=== PATIENT | female | born 1995 | race Caucasian/White ===

== ENCOUNTER → 2017-01-30 | Outpatient (CLI) | payer OTHER ==
[2017-01-30 08:45] LABS: BLOOD UREA NITROGEN 9 mg/dl (7-18); BUN/CREATININE RATIO 13.7 (10-20); CALCIUM 9.2 mg/dl (8.5-10.1); CARBON DIOXIDE 28 mmol/L (21-32); CHLORIDE 104 mmol/L (98-107); CREATININE 0.63 mg/dl (0.60-1.20); GLUCOSE 80 mg/dl (70-99); POTASSIUM 3.9 mmol/L (3.5-5.1); SODIUM 139 mmol/L (136-145)
== END | disposition home or self-care (01) ==
LOC: C.LAB 06:13
PROVIDERS: ATTEND Physician Assistant
DX: R53.83 Other fatigue (principal); R68.89 Other general symptoms and signs; F39 Unspecified mood [affective] disorder

== ENCOUNTER → 2017-06-11 | Outpatient (CLI) | payer OTHER ==
[2017-06-11 07:23] LABS: CHOLESTEROL/HDL RATIO 2.6
== END | disposition home or self-care (01) ==
LOC: C.LAB 06:14
PROVIDERS: ATTEND Family Medicine
DX: Z13.220 Encounter for screening for lipoid disorders (principal)

== ENCOUNTER → 2017-08-21 | Outpatient (CLI) | payer OTHER ==
[2017-08-21 09:32] LABS: BASO % 0.4 %; BASO ABS # 0.03 K/uL (0-0.2); COMPLETE YES; EOS % 1.1 %; HEMATOCRIT 44.3 % (37-47); IG% 0.1 %; LYMPH ABS # 2.61 K/uL (1.2-3.4); MEAN CELL VOLUME 94.7 fL (80-100); MEAN CORPUSCULAR HEMOGLOBIN 31.6 pg (25-34); MEAN CORPUSCULAR HGB CONC 33.4 g/dl (32-36); MEAN PLATELET VOLUME 10.7 fL (7.4-10.4); MONO % 6.1 %; NEUT % 61.3 %; PLATELET COUNT 298 K/uL (130-400); RED BLOOD COUNT 4.68 M/uL (4.2-5.4); WHITE BLOOD COUNT 8.41 K/uL (4.8-10.8)
[2017-08-21 09:55] LABS: THYROID STIMULATING HORMONE 1.61 uIu/ml (0.300-4.500)
== END | disposition home or self-care (01) ==
LOC: C.LAB 06:16
PROVIDERS: ATTEND Physician Assistant
DX: M54.2 Cervicalgia (principal)

== ENCOUNTER → 2017-08-25 | Outpatient (CLI) | payer OTHER | END | disposition home or self-care (01) | LOC: C.LAB 15:27 | PROVIDERS: ATTEND Family Medicine | DX: R20.2 Paresthesia of skin (principal) ==

== ENCOUNTER → 2018-02-17 | Outpatient (CLI) | payer OTHER ==
--- NOTE | 2018-02-17 10:22 | DIAGNOSTIC IMAGING REPORT ---
ULTRASOUND OF THE PELVIS CLINICAL HISTORY: Pelvic pain and bloating. COMPARISON STUDY: No priors. TECHNIQUE: Real-time, grayscale, and color flow sonography of the pelvis is performed both transabdominally and endovaginally. Images are reviewed in the transverse and longitudinal planes. FINDINGS: Uterus: The uterus is normal in size and echotexture, measuring 6.7 x 2.4 x 3.9 cm. Endometrium: The endometrium is normal in appearance, and the endometrial stripe is normal in thickness measuring up to 0.4 cm. Ovaries: The ovaries are normal in size and morphology. The right ovary measures 2.7 x 1.0 x 1.7 cm and the left ovary measures 2.3 x 0.9 x 2.3 cm. Small follicles are noted bilaterally. Normal Doppler waveforms are shown within both ovaries. Pelvis: There is trace free fluid in the cul-de-sac. No concerning adnexal lesion is seen. IMPRESSION: 1. No acute sonographic abnormality is identified in the pelvis. 2. Trace free fluid in the cul-de-sac is nonspecific and likely within physiologic limits. Electronically signed by: Jose Owens M.D. 02/17/2018 10:21 AM Dictated Date/Time: 02/17/2018 10:20 AM
--- NOTE | 2018-02-17 10:23 | DIAGNOSTIC IMAGING REPORT ---
ULTRASOUND RIGHT UPPER QUADRANT ABDOMEN CLINICAL HISTORY: Upper abdominal pain. COMPARISON STUDY: No priors. TECHNIQUE: Real-time, grayscale, and color flow sonography of the right upper quadrant of the abdomen was performed. Images are reviewed in the transverse and longitudinal planes. FINDINGS: Liver: The liver is normal in size and echotexture. There is no intrahepatic biliary ductal dilatation. The main portal vein is patent. Gallbladder: The gallbladder is normal in appearance. No gallstones are identified. There is no gallbladder wall thickening or pericholecystic fluid. A sonographic Price's sign is reportedly absent. The common bile duct measures up to 0.4 cm in diameter. Pancreas: Visualized portions of the pancreatic head and body are normal in appearance. The splenic vein is patent. Right kidney: Survey images of the right kidney demonstrate normal size and echotexture. There is no hydronephrosis. Ascites: None. IMPRESSION: Unremarkable sonographic assessment of the right upper quadrant. No gallstones are identified. Electronically signed by: Jose Owens M.D. 02/17/2018 10:22 AM Dictated Date/Time: 02/17/2018 10:21 AM
[2018-02-17 12:11] LABS: BASO % 0.7 %; BASO ABS # 0.04 K/uL (0-0.2); EOS % 0.7 %; EOS ABS # 0.04 K/uL (0-0.5); HEMOGLOBIN 13.8 g/dL (12.0-16.0); IG# 0.01 K/uL (0.00-0.02); MEAN CELL VOLUME 96.2 fL (80-100); MEAN CORPUSCULAR HEMOGLOBIN 32.4 pg (25-34); MEAN CORPUSCULAR HGB CONC 33.7 g/dl (32-36); MEAN PLATELET VOLUME 11.1 fL (7.4-10.4); NEUT % 50.4 %; NEUT ABS # 3.05 K/uL (1.4-6.5); PLATELET COUNT 239 K/uL (130-400); RED CELL DISTRIBUTION WIDTH CV 13.1 % (11.5-14.5); RED CELL DISTRIBUTION WIDTH SD 45.7 fL (36.4-46.3); WHITE BLOOD COUNT 6.04 K/uL (4.8-10.8)
[2018-02-17 12:45] LABS: ALBUMIN 3.5 gm/dl (3.4-5.0); ALT/SGPT 19 U/L (12-78); AST/SGOT 14 U/L (15-37); BLOOD UREA NITROGEN 14 mg/dl (7-18); CALCIUM 8.6 mg/dl (8.5-10.1); CARBON DIOXIDE 29 mmol/L (21-32); CREATININE 0.62 mg/dl (0.60-1.20); GLUCOSE 80 mg/dl (70-99); LIPASE 151 U/L (73-393); SODIUM 139 mmol/L (136-145)
[2018-02-17 12:47] LABS: ALKALINE PHOSPHATASE 41 U/L (45-117); TOTAL PROTEIN 7.1 gm/dl (6.4-8.2)
== END | disposition home or self-care (01) ==
LOC: C.ULTR 08:40
PROVIDERS: ATTEND Family Medicine
DX: R10.10 Upper abdominal pain, unspecified (principal); R14.0 Abdominal distension (gaseous); R10.30 Lower abdominal pain, unspecified

== ENCOUNTER 2021-08-06 07:29 | Inpatient (IN) ==
[2021-08-06] MEDS ORDERED: OXYTOCIN 30 UNITS/500 ML BAG IV PRN (09:38)
[2021-08-06] MEDS ORDERED: miSOPROStoL 50 MCG TAB PO ONE ×2 (09:38→15:43)
[2021-08-06 09:57] LABS: Hematocrit (blood only) 37.8 % (37-47); Hemoglobin 13.1 g/dL (12.0-16.0); Mean Corpuscular Hemoglobin 32.3 pg (25-34); Mean Corpuscular Hgb Conc 34.7 g/dL (32-36); Mean Corpuscular Volume 93.3 fL (80-100); Mean Platelet Volume 11.2 fL (7.4-10.4); Platelet Count 262 K/uL (130-400); RDW Coefficient of Variation 13.2 % (11.5-14.5); RDW Standard Deviation 45.3 fL (36.4-46.3); Red Blood Count 4.05 M/uL (4.2-5.4); White Blood Count 8.97 K/uL (4.8-10.8)
[2021-08-06 10:14] LABS: Alanine Aminotransferase 17 U/L (12-78); Albumin Level 2.8 gm/dl (3.4-5.0); Aspartate Aminotransferase 18 U/L (15-37); BUN Creatinine Ratio 18.9 (10-20); Blood Urea Nitrogen 9 mg/dl (7-18); Calcium 9.3 mg/dl (8.5-10.1); Carbon Dioxide 20 mmol/L (21-32); Chloride 108 mmol/L (98-107); Creatinine Clr Calc Pharmacy 212.3 ml/min; Est GFR (African American) > 150.0 ml/min; Est GFR (Non-African American) 134.4 ml/min; Glucose 79 mg/dl (70-99); Potassium 3.9 mmol/L (3.5-5.1); Sodium 137 mmol/L (136-145)
[2021-08-06 10:17] LABS: Albumin Globulin Ratio 0.7 (0.9-2); Alkaline Phosphatase 217 U/L (45-117); Bilirubin,Total 0.2 mg/dl (0.2-1); Globulin 4.2 gm/dl (2.5-4.0)
--- NOTE | 2021-08-06 12:07 | Labor Progress Brief Note ---
Date of Service August 06, 2021 Assessment & Plan (1) Gestational hypertension: Plan: Induction for Gest. HTN Day #1 pt doing well FHR; CAT1 Ctx; None VE; Ft/thick/post Cervidil #1 Admission and Anticipated Discharge Date Admission Date: August 06, 2021 Results & Data ([facility]) Vital Signs (Past 12 Hours) Vital Signs Temp Pulse Resp BP 08/06/21 11:13 86 130/66 08/06/21 08:30 36.9 C 20 08/06/21 07:39 80 140/88
--- NOTE | 2021-08-06 16:32 | Labor Progress Brief Note ---
Date of Service August 06, 2021 Assessment & Plan (1) Gestational hypertension: Plan: Pt doing well FHR; CAyt1 Ctx; irregular with Mild intensity VE ; Ft/25%/-3 Cytotec ordered Admission and Anticipated Discharge Date Admission Date: August 06, 2021 Results & Data ([facility]) Vital Signs (Past 12 Hours) Vital Signs Temp Pulse Resp BP 08/06/21 14:48 75 143/92 H 08/06/21 13:30 18 08/06/21 11:13 86 130/66 08/06/21 08:30 36.9 C 20 08/06/21 07:39 80 140/88
[2021-08-06] MEDS ORDERED: DINOPROSTONE 10 MG INSERT PV ONE (20:15)
--- NOTE | 2021-08-06 21:44 | Labor Progress Brief Note ---
Date of Service August 06, 2021 Assessment & Plan (1) Gestational hypertension: Plan: Pt doing well FHR; CAT1 Ctx mild VE; Unchanged Cervidil placed in vagina Admission and Anticipated Discharge Date Admission Date: August 06, 2021 Results & Data ([facility]) Vital Signs (Past 12 Hours) Vital Signs Temp Pulse Resp BP 08/06/21 19:10 37.3 C 18 08/06/21 19:03 82 142/95 H 08/06/21 19:02 82 155/103 H 08/06/21 16:00 36.9 C 08/06/21 14:48 75 143/92 H 08/06/21 13:30 18 08/06/21 11:30 36.9 C 08/06/21 11:13 86 130/66
--- NOTE | 2021-08-07 09:23 | Labor Progress Brief Note ---
Date of Service August 07, 2021 Assessment & Plan Admission and Anticipated Discharge Date Admission Date: August 06, 2021 Physical Exam Genitourinary: no vaginal lesions, no adnexal mass normal external appearance Manual OB Exam: + cervical dilation fingertip, + cervical effacement (25%) and + station high Cervidil removed will continue ripening with Cytotec 50 mcg orally every 4 hours Results & Data ([facility]) Vital Signs (Past 12 Hours) Vital Signs Temp Pulse Resp BP 08/07/21 07:58 71 133/86 08/07/21 07:56 37.4 C 18 08/07/21 04:07 37.0 C 68 18 119/73 08/06/21 23:05 36.7 C 71 121/62
[2021-08-07] MEDS ORDERED: LIDOCAINE 1% LOCAL 20 ML VIAL ONE (09:27)
[2021-08-07] MEDS: miSOPROStoL 50 MCG TAB PO SCH ×3 (15:49→22:09)
--- NOTE | 2021-08-07 21:54 | Labor Progress Brief Note ---
Date of Service August 07, 2021 Assessment & Plan Admission and Anticipated Discharge Date Admission Date: August 06, 2021 Physical Exam Genitourinary: Manual OB Exam: + cervical dilation fingertip, + cervical effacement (25%) and + station high OB Exam Monitor Tracing: + external FHT monitor used, + external uterine monitor used, + category I and + normal FHT variability cervix more anterior now will place Cervidil for continued ripening Results & Data ([facility]) Vital Signs (Past 12 Hours) Vital Signs Temp Pulse Resp BP 08/07/21 19:03 75 130/81 08/07/21 19:00 36.8 C 18 08/07/21 15:29 37.1 C 18 08/07/21 14:38 18 08/07/21 13:52 79 139/87 08/07/21 13:00 18 08/07/21 11:29 70 121/79 08/07/21 11:28 36.8 C 18
[2021-08-07] MEDS ORDERED: DINOPROSTONE 10 MG INSERT PV ONE (22:00)
--- NOTE | 2021-08-07 22:22 | Labor Progress Brief Note ---
Date of Service August 07, 2021 Assessment & Plan Admission and Anticipated Discharge Date Admission Date: August 06, 2021 Physical Exam Genitourinary: Manual OB Exam: + cervical dilation fingertip, + cervical effacement (25) and + station (Cervidil 10 mg placed vaginally) high OB Exam Monitor Tracing: + external FHT monitor used, + external uterine monitor used, + category I and + normal FHT variability Results & Data ([facility]) Vital Signs (Past 12 Hours) Vital Signs Temp Pulse Resp BP 08/07/21 19:03 75 130/81 08/07/21 19:00 36.8 C 18 08/07/21 15:29 37.1 C 18 08/07/21 14:38 18 08/07/21 13:52 79 139/87 08/07/21 13:00 18 08/07/21 11:29 70 121/79 08/07/21 11:28 36.8 C 18
[2021-08-07] MEDS ORDERED: BUTORPHANOL TARTRATE 1 MG/ML VIAL IV PRN (22:24)
--- NOTE | 2021-08-08 10:07 | Anesthesia Procedure Note ---
Date of Service August 08, 2021 Anesthesia Post Epidural Note Vital Signs Vital Signs: Temp Pulse Resp BP 37.5 C 82 18 122/85 08/08/21 08:05 08/08/21 08:01 08/08/21 08:05 08/08/21 08:01 Pain Intensity Lower Abdomen: Pain Intensity: 1 Notes Mental Status: alert / awake / arousable Nausea / Vomiting: adequately controlled Pain: adequately controlled Airway Patency, RR, SpO2: stable & adequate BP & HR: stable & adequate Hydration State: stable & adequate Neuraxial Anesthesia: was administered and sensory block is resolving Anesthetic Complications: no major complications apparent and Pt Satisfied with anesthetic care Epidural: Removed without complications and With tip intact
--- NOTE | 2021-08-08 10:16 | Labor Progress Brief Note ---
Date of Service August 08, 2021 Assessment & Plan Admission and Anticipated Discharge Date Admission Date: August 06, 2021 Physical Exam Genitourinary: Manual OB Exam: + cervical dilation 1 cm, + cervical effacement 60% and + station (cervix still firm. ) -2 Will start Oxytocin and plan to place intracervical Jeffrey Results & Data ([facility]) Vital Signs (Past 12 Hours) Vital Signs Temp Pulse Resp BP 08/08/21 08:05 37.5 C 18 08/08/21 08:01 82 122/85 08/08/21 07:59 37.5 C 18 08/08/21 04:03 36.7 C 63 18 120/70 08/07/21 22:41 70 114/60 08/07/21 22:40 36.7 C 16
[2021-08-08] MEDS ORDERED: OXYTOCIN 30 UNITS/500 ML BAG IV PRN ×2 (10:17→23:51)
--- NOTE | 2021-08-08 11:34 | Labor Progress Brief Note ---
Date of Service August 08, 2021 Assessment & Plan Admission and Anticipated Discharge Date Admission Date: August 06, 2021 Physical Exam Genitourinary: OB Exam Monitor Tracing: + external FHT monitor used, + external uterine monitor used, + category I and + normal FHT variability Jeffrey placed trans-cervically with 40 ml. saline inserted into balloon. Patient tolerated procedure well. Results & Data ([facility]) Vital Signs (Past 12 Hours) Vital Signs Temp Pulse Resp BP 08/08/21 11:16 79 132/85 08/08/21 10:34 18 08/08/21 08:05 37.5 C 18 08/08/21 08:01 82 122/85 08/08/21 07:59 37.5 C 18 08/08/21 04:03 36.7 C 63 18 120/70
[2021-08-08] MEDS: LACTATED RINGER'S 1,000 ML IV PRN ×4 (11:38→22:19)
[2021-08-08] MEDS: miSOPROStoL 50 MCG TAB PO SCH (11:42)
[2021-08-08 14:16] LABS: Chlamydia Trach RNA NOT DETECTED (NOT DETECTED); GC (Neis gonorrhoeae) RNA NOT DETECTED (NOT DETECTED)
[2021-08-08] MEDS ORDERED: ONDANSETRON INJ 2 MG/ML 2 ML VIAL IV PRN (15:14)
--- NOTE | 2021-08-08 17:36 | Labor Progress Brief Note ---
Date of Service August 08, 2021 Assessment & Plan Admission and Anticipated Discharge Date Admission Date: August 06, 2021 Physical Exam Genitourinary: Manual OB Exam: + cervical dilation 5 cm; Not 2 cm, + cervical effacement 70%, + station -2 and + amniotic fluid (AROM with Amni-hook clear fluid) clear OB Exam Monitor Tracing: + external FHT monitor used, + external uterine monitor used, + category I and + normal FHT variability Results & Data ([facility]) Vital Signs (Past 12 Hours) Vital Signs Temp Pulse Resp BP 08/08/21 16:30 75 20 152/91 H 08/08/21 15:01 91 H 139/82 08/08/21 15:00 37.1 C 18 08/08/21 14:30 18 08/08/21 14:16 85 136/83 08/08/21 12:52 78 122/70 08/08/21 12:00 18 08/08/21 11:30 18 08/08/21 11:16 79 132/85 08/08/21 10:34 18 08/08/21 08:05 37.5 C 18 08/08/21 08:01 82 122/85 08/08/21 07:59 37.5 C 18
[2021-08-08] MEDS ORDERED: SODIUM CHLORIDE 0.9% INJ 10 ML VIAL ONE (18:34)
[2021-08-08] MEDS ORDERED: BUPIVACAINE 0.25% 30 ML VIAL ONE (18:34)
[2021-08-08] MEDS ORDERED: ePHEDrine sulfate 50 MG/ML AMP ONE (18:34)
[2021-08-08] MEDS ORDERED: fentaNYL 2MCG/ML ROPIVACAINE 1.25MG/ML 100 ML BAG EPI ONE (18:35)
[2021-08-08] MEDS ORDERED: fentaNYL citrate 100 MCG/2 ML VIAL ONE (18:35)
--- NOTE | 2021-08-08 19:50 | Labor Progress Brief Note ---
Date of Service August 08, 2021 Assessment & Plan Admission and Anticipated Discharge Date Admission Date: August 06, 2021 Physical Exam Genitourinary: Manual OB Exam: + cervical dilation 5 cm and 6 cm, + cervical effacement 70%, + station -1 and + amniotic fluid clear OB Exam Monitor Tracing: + external FHT monitor used, + external uterine monitor used, + category I and + normal FHT variability Results & Data ([facility]) Vital Signs (Past 12 Hours) Vital Signs Temp Pulse Resp BP Pulse Ox 08/08/21 19:48 102 H 98 08/08/21 19:46 109 H 92 08/08/21 19:44 110 H 128/73 08/08/21 19:43 108 H 100 08/08/21 19:40 110 H 128/72 08/08/21 19:38 96 H 99 08/08/21 19:35 110 H 92 08/08/21 19:34 110 H 133/72 08/08/21 19:33 104 H 99 08/08/21 19:32 95 H 121/78 08/08/21 19:30 99 H 122/68 08/08/21 19:28 106 H 124/69 97 08/08/21 19:26 103 H 129/76 08/08/21 19:24 96 H 139/75 08/08/21 19:23 101 H 100 08/08/21 19:22 96 H 20 145/80 H 08/08/21 19:18 88 98 08/08/21 19:15 103 H 89 L 08/08/21 19:13 99 H 99 08/08/21 19:08 94 H 99 08/08/21 19:03 90 95 08/08/21 18:58 92 H 99 08/08/21 18:53 95 H 99 08/08/21 18:48 84 98 08/08/21 18:43 95 H 97 08/08/21 18:39 36.9 C 101 H 18 145/85 H 08/08/21 18:38 84 100 08/08/21 17:49 85 147/82 H 08/08/21 17:46 85 150/92 H 08/08/21 16:30 75 20 152/91 H 08/08/21 15:01 91 H 139/82 08/08/21 15:00 37.1 C 18 08/08/21 14:30 18 09/30/21 14:16 85 136/83 08/08/21 12:52 78 122/70 08/08/21 12:00 18 08/08/21 11:30 18 08/08/21 11:16 79 132/85 08/08/21 10:34 18 08/08/21 08:05 37.5 C 18 08/08/21 08:01 82 122/85 08/08/21 07:59 37.5 C 18
--- NOTE | 2021-08-08 19:53 | Anesthesiology Consultation ---
Date of Service August 08, 2021 Assessment & Plan Chart Review Chart Review: Patient NOT seen in Pre Admission Testing and Acceptable Risk for Labor Epidural Consults Requested none ASA ASA2 Proposed Anesthesia Anesthesia Type: Labor Epidural Risk / Benefits Reviewed With: PT / POA / Parent / Guardian, Accepts Plan and Informed Consent Obtained History Height/Weight Height: 5 ft 9 in Weight: 89.358 kg Allergies Allergy/AdvReac Type Severity Reaction Status Date / Time No Known Allergies Allergy Verified 07/08/18 14:35 Medications Home Medications Medication Instructions Recorded Confirmed Last Taken docusate sodium 100 mg capsule 100 mg PO BID 07/31/21 08/06/21 07/30/21 08:00 (Colace) loratadine 5 mg-pseudoephedrine ER 1 tab PO Q12H PRN 07/31/21 08/06/21 08/06/21 120 mg tablet,extended release,12hr (Claritin-D 12 Hour) polyethylene glycol 3350 17 gram 17 g PO DAILY 07/31/21 08/06/21 07/24/21 08:00 oral powder packet (Miralax) prenat.vits,janusz,vbw-juug-tvjuv 1 tab PO DAILY 07/31/21 08/06/21 08/06/21 Active Medications Generic Name Dose Route Start Last Admin Trade Name Freq PRN Reason Stop Dose Admin Lactated Ringer's 1,000 mls @ 125 mls/hr 08/06/21 09:38 08/08/21 17:51 Lr IV 08/10/21 09:37 999 mls/hr .Q8H PRN Administration L&D Protocol Protocol Oxytocin 30 units in 500 mls @ 14 mls/hr 08/08/21 10:17 08/08/21 17:10 Pitocin IV 08/10/21 10:16 0.84 units/hr .Q24H PRN 14 mls/hr Labor Induction/Augmentation Titration Protocol 0.84 UNITS/HR Past Medical History Medical History Crohn disease IBS (irritable bowel syndrome) Raynauds disease Exercise / Class Metabolic Activity II 4-5 Yardwork/Stairs/Walk up hill Past Surgical History Surgical History History of tonsillectomy Past Anesthesia History No Hx of Anesthesia Complications and No Family Hx of Anesthesia Complications History of PONV No Hx of PONV and No Hx of Motion Sickness Social History Smoking Status: Never smoker Hx Alcohol Use: No Hx Substance Use: No substance use type: does not use Physical Exam Vital Signs Last Vital Signs Temp 36.9 C 08/08/21 18:39 Pulse 94 H 08/08/21 19:51 Resp 20 08/08/21 19:22 BP 128/73 08/08/21 19:44 Pulse Ox 90 08/08/21 19:51 ENMT Mouth: no dentition abnormality Thyromental Distance: > or= 3.5 Finger Breadths Mallampati Class: II Neck normal visual inspection Respiratory normal respiratory effort Auscultation: lungs clear to auscultation bilaterally Cardiovascular Rate/Rhythm: regular rate and regular rhythm Psychiatric Orientation: alert Testing Laboratory Results 08/06/21 09:46 08/06/21 09:46 Blood Type A Positive 08/06/21 09:46 Antibody Screen NEGATIVE 08/06/21 09:46
[2021-08-08] MEDS ORDERED: NALBUPHINE HCL INJ 10 MG/ML AMP IV PRN (19:54)
[2021-08-08] MEDS ORDERED: fentaNYL 2MCG/ML ROPIVACAINE 1.25MG/ML 100 ML BAG EPI PRN (19:54)
[2021-08-08] MEDS ORDERED: diphenhydrAMINE 50 MG/ML VIAL IV PRN (19:54)
[2021-08-08] MEDS ORDERED: NALOXONE HCL 0.4 MG/1 ML VIAL/CARP IV PRN (19:54)
[2021-08-08] MEDS ORDERED: ePHEDrine sulfate 50 MG/ML AMP IV PRN (19:54)
[2021-08-08] MEDS ORDERED: NALOXONE HCL 1 MG in SODIUM CHLORIDE 0.9% 1000ML 1,000 ML IV PRN (19:54)
--- NOTE | 2021-08-08 21:42 | Labor Progress Brief Note ---
Date of Service August 08, 2021 Assessment & Plan Admission and Anticipated Discharge Date Admission Date: August 06, 2021 Physical Exam Genitourinary: Manual OB Exam: + cervical dilation 5 cm and 6 cm, + cervical effacement 80%, + station -1 and + amniotic fluid clear OB Exam Monitor Tracing: + external FHT monitor used, + external uterine monitor used, + category I and + normal FHT variability Results & Data ([facility]) Vital Signs (Past 12 Hours) Vital Signs Temp Pulse Resp BP Pulse Ox 08/08/21 21:38 111 H 100 08/08/21 21:33 100 H 142/84 H 96 08/08/21 21:30 16 08/08/21 21:28 107 H 98 08/08/21 21:26 107 H 86 L 08/08/21 21:23 115 H 94 08/08/21 21:19 106 H 84 L 08/08/21 21:18 110 H 154/85 H 96 08/08/21 21:13 116 H 80 L 08/08/21 21:12 112 H 85 L 08/08/21 21:08 104 H 96 08/08/21 21:06 107 H 83 L 08/08/21 21:03 110 H 144/86 H 100 08/08/21 21:00 20 08/08/21 20:58 120 H 100 08/08/21 20:53 123 H 91 08/08/21 20:48 103 H 129/78 100 08/08/21 20:47 101 H 85 L 08/08/21 20:43 102 H 98 08/08/21 20:39 97 H 87 L 08/08/21 20:38 96 H 97 08/08/21 20:33 96 H 141/81 H 91 08/08/21 20:32 91 H 87 L 08/08/21 20:30 16 08/08/21 20:28 93 H 93 08/08/21 20:26 88 88 L 08/08/21 20:23 89 100 08/08/21 20:18 91 H 88 L 08/08/21 20:17 90 141/85 H 08/08/21 20:13 88 90 08/08/21 20:12 92 H 84 L 08/08/21 20:08 85 95 08/08/21 20:03 92 H 139/82 93 08/08/21 20:00 16 08/08/21 19:58 94 H 100 08/08/21 19:57 90 86 L 08/08/21 19:53 89 88 L 08/08/21 19:51 94 H 90 08/08/21 19:48 102 H 98 08/08/21 19:46 109 H 92 08/08/21 19:44 110 H 128/73 08/08/21 19:43 108 H 100 08/08/21 19:40 110 H 128/72 08/08/21 19:38 96 H 99 08/08/21 19:35 110 H 92 08/08/21 19:34 110 H 133/72 08/08/21 19:33 104 H 99 08/08/21 19:32 95 H 121/78 08/08/21 19:30 99 H 122/68 08/08/21 19:28 106 H 124/69 97 08/08/21 19:26 103 H 129/76 08/08/21 19:24 96 H 139/75 08/08/21 19:23 101 H 100 08/08/21 19:22 96 H 20 145/80 H 08/08/21 19:18 88 98 08/08/21 19:15 103 H 89 L 08/08/21 19:13 99 H 99 08/08/21 19:08 94 H 99 08/08/21 19:03 90 95 08/08/21 18:58 92 H 99 08/08/21 18:53 95 H 99 08/08/21 18:48 84 98 08/08/21 18:43 95 H 97 08/08/21 18:39 36.9 C 101 H 18 145/85 H 08/08/21 18:38 84 100 08/08/21 17:49 85 147/82 H 08/08/21 17:46 85 150/92 H 08/08/21 16:30 75 20 152/91 H 08/08/21 15:01 91 H 139/82 08/08/21 15:00 37.1 C 18 08/08/21 14:30 18 08/08/21 14:16 85 136/83 08/08/21 12:52 78 122/70 08/08/21 12:00 18 08/08/21 11:30 18 08/08/21 11:16 79 132/85 08/08/21 10:34 18
--- NOTE | 2021-08-08 23:44 | Delivery Summary ---
Vaginal Delivery Summary Date of Service August 08, 2021 Vaginal Delivery Summary Delivery Note live male JENNIFER over intact perineum with nuchal cord x1 reduced at delivery of head with delayed cord clamping. Apgars 8/9 weight pending. Cord blood obtained followed by spontaneous delivery of intact placenta. No tears. EBL 100ml. Final sponge and instrument count are correct. Mom and baby stable.
[2021-08-08] MEDS ORDERED: bisacodyL 10 MG SUPP PR PRN (23:51)
[2021-08-08] MEDS ORDERED: DIPHTHERIA/TETANUS/PERTUSSIS 0.5 ML SYR/VIAL IM ONE (23:51)
[2021-08-08] MEDS ORDERED: IBUPROFEN 600 MG TAB PO PRN (23:51)
[2021-08-08] MEDS ORDERED: HYDROCORTISONE ACETATE 25 MG SUPP PR PRN (23:51)
[2021-08-08] MEDS ORDERED: BENZOCAINE 20% AER SPR 82.5 GM CAN EXT PRN (23:51)
[2021-08-08] MEDS ORDERED: SUPERCREAM 0.870% 15 GM JAR EXT PRN (23:51)
[2021-08-08] MEDS ORDERED: ACETAMINOPHEN 325 MG TAB PO PRN (23:51)
--- NOTE | 2021-08-09 00:26 | Anesthesia Procedure Note ---
Date of Service August 09, 2021 Anesthesia Post Epidural Note Vital Signs Vital Signs: Temp Pulse Resp BP Pulse Ox 37.4 C 121 H 18 144/87 H 95 08/08/21 23:19 08/09/21 00:17 08/08/21 23:32 08/09/21 00:17 08/08/21 23:33 Pain Intensity Lower Abdomen: Pain Intensity: 4 Notes Mental Status: alert / awake / arousable Nausea / Vomiting: adequately controlled Pain: adequately controlled Airway Patency, RR, SpO2: stable & adequate BP & HR: stable & adequate Hydration State: stable & adequate Neuraxial Anesthesia: was administered and sensory block is resolving Anesthetic Complications: no major complications apparent and Pt Satisfied with anesthetic care Epidural: Removed without complications and With tip intact
[2021-08-09 06:22] LABS: Hemoglobin 11.1 g/dL (12.0-16.0); Mean Corpuscular Hemoglobin 31.1 pg (25-34); Mean Corpuscular Hgb Conc 34.7 g/dL (32-36); Mean Corpuscular Volume 89.6 fL (80-100); Mean Platelet Volume 10.9 fL (7.4-10.4); Platelet Count 247 K/uL (130-400); RDW Standard Deviation 42.5 fL (36.4-46.3); Red Blood Count 3.57 M/uL (4.2-5.4); White Blood Count 15.73 K/uL (4.8-10.8)
[2021-08-09] MEDS ORDERED: DOCUSATE SODIUM 100 MG CAP PO SCH (08:00)
[2021-08-09] MEDS: ACETAMINOPHEN 325 MG TAB PO PRN ×2 (08:26→20:39)
[2021-08-09] MEDS: DOCUSATE SODIUM 100 MG CAP PO SCH ×2 (08:26→20:39)
[2021-08-09] MEDS: PRENATAL VITAMIN 1 TAB PO SCH (08:26)
[2021-08-09] MEDS: POLYETHYLENE (MIRALAX) 17 GM PACK PO SCH (08:27)
[2021-08-09] MEDS ORDERED: NON-FORMULARY MEDICATION (Prenat.Vits,Cal,Min-Iron-Folic Tablet) PO SCH (09:00)
--- NOTE | 2021-08-09 11:53 | Obstetrical Progress Note ---
Date of Service August 09, 2021 Subjective Ambulation: ambulating normally Voiding: no voiding problems Passing Gas:: Yes Diet Tolerance:: regular diet Lochia:: Small Feeding Type:: breast feeding Current Pain Level(1-10): 0 doing well Physical Exam Constitutional WD/WN, vitals as above comfortable abdomen soft and non-tender no edema neg Amina's tent d/c in AM Results & Data ([facility]) Vital Signs (Past 12 Hours) Vital Signs Temp Pulse Pulse Resp BP BP 08/09/21 11:47 36.9 C 87 16 142/75 H 08/09/21 07:30 36.5 C 92 H 16 145/90 H 08/09/21 04:34 36.9 C 103 H 20 147/84 H 08/09/21 01:32 114 H 20 141/85 H 08/09/21 01:17 99 H 133/76 08/09/21 01:02 123 H 18 143/84 H 08/09/21 00:33 133 H 20 147/67 H 08/09/21 00:17 121 H 18 144/87 H 08/09/21 00:02 112 H 18 144/85 H Laboratory Results 08/06/21 08/06/21 08/06/21 07:48 07:48 09:46 WBC RBC Hgb Hct MCV MCH MCHC RDW Std Deviation RDW Coeff of Aleena Plt Count MPV Sodium Potassium Chloride Carbon Dioxide Anion Gap BUN Creatinine Est Cr Clr Drug Dosing Est GFR ( Amer) Est GFR (Non-Af Amer) BUN/Creatinine Ratio Glucose Calcium Total Bilirubin AST ALT Alkaline Phosphatase Total Protein Albumin Globulin Albumin/Globulin Ratio C.trachomatis RNA COVID-19 Eval Order Covid19 IDNow [facility] N.gonorrhoeae RNA SARS-CoV-2, RNA, NAAT NEGATIVE Reference Lab Comment Blood Type A Positive Antibody Screen NEGATIVE 08/06/21 08/06/21 08/06/21 09:46 09:46 11:00 WBC 8.97 RBC 4.05 L Hgb 13.1 Hct 37.8 MCV 93.3 MCH 32.3 MCHC 34.7 RDW Std Deviation 45.3 RDW Coeff of Aleena 13.2 Plt Count 262 MPV 11.2 H Sodium 137 Potassium 3.9 Chloride 108 H Carbon Dioxide 20 L Anion Gap 8.0 BUN 9 Creatinine 0.47 L Est Cr Clr Drug Dosing 212.3 Est GFR ( Amer) > 150.0 Est GFR (Non-Af Amer) 134.4 BUN/Creatinine Ratio 18.9 Glucose 79 Calcium 9.3 Total Bilirubin 0.2 AST 18 ALT 17 Alkaline Phosphatase 217 H Total Protein 7.0 Albumin 2.8 L Globulin 4.2 H Albumin/Globulin Ratio 0.7 L C.trachomatis RNA NOT DETECTED COVID-19 Eval Order N.gonorrhoeae RNA NOT DETECTED SARS-CoV-2, RNA, NAAT Reference Lab Comment SEE NOTE Blood Type Antibody Screen 08/09/21 06:01 WBC 15.73 H RBC 3.57 L Hgb 11.1 L Hct 32.0 L MCV 89.6 MCH 31.1 MCHC 34.7 RDW Std Deviation 42.5 RDW Coeff of Aleena 13.0 Plt Count 247 MPV 10.9 H Sodium Potassium Chloride Carbon Dioxide Anion Gap BUN Creatinine Est Cr Clr Drug Dosing Est GFR ( Amer) Est GFR (Non-Af Amer) BUN/Creatinine Ratio Glucose Calcium Total Bilirubin AST ALT Alkaline Phosphatase Total Protein Albumin Globulin Albumin/Globulin Ratio C.trachomatis RNA COVID-19 Eval Order N.gonorrhoeae RNA SARS-CoV-2, RNA, NAAT Reference Lab Comment Blood Type Antibody Screen
[2021-08-09] MEDS ORDERED: MEASLES, MUMPS & RUBELLA VIRUS VIAL SQ ONE (16:41)
[2021-08-09] MEDS ORDERED: bisacodyL 5 MG TABEC PO SCH (20:00)
--- NOTE | 2021-08-10 07:46 | Obstetrical Progress Note ---
Date of Service August 10, 2021 Subjective Ambulation: ambulating normally Voiding: no voiding problems Passing Gas:: Yes Diet Tolerance:: regular diet Lochia:: Small Feeding Type:: breast feeding doing well Physical Exam Constitutional WD/WN, vitals as above comfortable abdomen soft no edema neg Amina's for d/c today Results & Data ([facility]) Vital Signs (Past 12 Hours) Vital Signs Temp Pulse Resp BP Pulse Ox 08/10/21 00:10 36.9 C 73 20 142/88 H 97 Laboratory Results Laboratory Results - last 72 hr 08/06/21 08/09/21 08/10/21 11:00 06:01 06:17 WBC 15.73 H RBC 3.57 L Hgb 11.1 L 11.0 L Hct 32.0 L 32.0 L MCV 89.6 MCH 31.1 MCHC 34.7 RDW Std Deviation 42.5 RDW Coeff of Aleena 13.0 Plt Count 247 MPV 10.9 H C.trachomatis RNA NOT DETECTED N.gonorrhoeae RNA NOT DETECTED Reference Lab Comment SEE NOTE
[2021-08-10] MEDS: PRENATAL VITAMIN 1 TAB PO SCH (08:19)
[2021-08-10] MEDS: DOCUSATE SODIUM 100 MG CAP PO SCH (08:19)
[2021-08-10] MEDS: POLYETHYLENE (MIRALAX) 17 GM PACK PO SCH (08:19)
== END 2021-08-10 11:30 | disposition home or self-care (01) | DRG 807 ==
LOC: 4S1 07:29 → 4S2 08-09 02:10

== ENCOUNTER 2022-02-17 16:58 | Observation (INO) ==
[2022-02-17 17:35] LABS: Basophils # (auto) 0.02 K/uL (0-0.2); Basophils % (auto) 0.2 %; Eosinophils # (auto) 0.03 K/uL (0-0.5); Eosinophils % (auto) 0.3 %; Hematocrit (blood only) 43.1 % (37-47); Hemoglobin 15.1 g/dL (12.0-16.0); Immature Granulocytes # (auto) 0.02 K/uL (0.00-0.02); Immature Granulocytes % (auto) 0.2 %; Lymphocytes # (auto) 3.28 K/uL (1.2-3.4); Lymphocytes % (auto) 32.3 %; Mean Corpuscular Hemoglobin 31.7 pg (25-34); Mean Corpuscular Volume 90.4 fL (80-100); Mean Platelet Volume 9.7 fL (7.4-10.4); Monocytes # (auto) 0.72 K/uL (0.11-0.59); Monocytes % (auto) 7.1 %; Neutrophils # (auto) 6.09 K/uL (1.4-6.5); Neutrophils % (auto) 59.9 %; Platelet Count 377 K/uL (130-400); RDW Coefficient of Variation 12.8 % (11.5-14.5); RDW Standard Deviation 42.7 fL (36.4-46.3); Red Blood Count 4.77 M/uL (4.2-5.4); White Blood Count 10.16 K/uL (4.8-10.8)
[2022-02-17 17:51] LABS: Alanine Aminotransferase 13 U/L (7-52); Albumin Globulin Ratio 1.6 (0.9-2); Albumin Level 5.2 gm/dl (3.4-5.0); Alkaline Phosphatase 97 U/L (34-104); Anion Gap 10 (3-11); Aspartate Aminotransferase 18 U/L (13-39); BUN Creatinine Ratio 15.5 (10-20); Bilirubin,Total 0.4 mg/dl (0.2-1.0); Blood Urea Nitrogen 9 mg/dl (6-23); Calcium 10.4 mg/dl (8.5-10.1); Carbon Dioxide 27 mmol/L (21-32); Chloride 102 mmol/L (98-107); Creatinine Clr Calc Pharmacy 150.9 ml/min; Est GFR (African American) 145.4 ml/min; Est GFR (Non-African American) 125.4 ml/min; Globulin 3.2 gm/dl (2.5-4.0); Glucose 90 mg/dl (70-99(Fasting)); Partial Thromboplastin Ratio 0.9; Partial Thromboplastin Time 24.3 Seconds (21.0-31.0); Potassium 3.5 mmol/L (3.5-5.1); Prothrombin Time 10.8 Seconds (9.0-12.0); Sodium 139 mmol/L (136-145); Total Protein 8.4 gm/dl (6.0-8.3)
[2022-02-17 17:52] LABS: Troponin I < 0.03 ng/ml (0-0.04)
--- NOTE | 2022-02-17 18:23 | XRay Report ---
XR chest 1V portable HISTORY: 26 years-old Female cp acute atypical chest pain COMPARISON: Chest radiograph 02/14/2022 TECHNIQUE: Portable AP view of the chest FINDINGS: The cardiomediastinal and hilar silhouettes are within normal limits. There is no pneumothorax, pleur al effusion, airspace consolidation or overt pulmonary edema. Bones of the chest appear grossly intac t. IMPRESSION: No acute process. ACT 112: Negative or not required by law. The above report was generated using voice recognition software. It may contain grammatical, syntax o r spelling errors. Electronically signed by: Shaquille Issa M.D. 02/17/2022 6:22 PM
[2022-02-17] MEDS ORDERED: POTASSIUM CHLORIDE CRTAB 20 MEQ TABCR PO STA (19:33)
[2022-02-17] MEDS ORDERED: LACTATED RINGER'S 1,000 ML IV ONE (19:34)
[2022-02-17] MEDS ORDERED: METOPROLOL SUCC 25MG EXT REL TAB PO STA (19:47)
[2022-02-17 19:55] LABS: D Dimer < 190 ug/L FEU (0-500)
[2022-02-17 20:04] LABS: Magnesium 2.1 mg/dl (1.7-2.4)
[2022-02-17] MEDS ORDERED: ACETAMINOPHEN 325 MG TAB PO PRN (20:43)
[2022-02-17] MEDS ORDERED: FAMOTIDINE 10 MG TABLET PO ONE (20:43)
--- NOTE | 2022-02-17 20:44 | History & Physical Report ---
Date of Service February 17, 2022 Assessment & Plan (1) Chest pain: Plan: With palpitations ? Secondary to uncontrolled hypertension hx gestational hypertension as per records SVT, VT on outpatient Zio patch ? GERD component given burning description Headache symptoms secondary to uncontrolled HTN Rule out brain tumor given visual complaints and symptom duration of 1 month Crohn's disease, stable off maintenance medications OBS PCU Increase maintenance Toprol XL dose Famotidine for possible GERD Cardiology consult Re: TTE Re: Chest pain, palpitations, abnormal Zio patch Brain MRI DVT prophylaxis SCDs Full code Text document was generated using [employer] voice recognition software. It may contain grammatical or spelling errors. Kindly contact undersigned for clarification of any documentation item in question. History of Present Illness Chief Complaint: Chest pain Primary Care Provider: Angela Skaggs MD History obtained from patient and records. Medical history significant for Crohn's disease, gestational hypertension as per records. Last confinement 2020 under OB service for childbirth. Last month, patient noted lightheadedness symptoms, sensation that she is about to pass out with intermittent palpitations. No chest pain, no S OB. SBP noted to be 170s at work. No unusual stress except for new baby. Patient seen at PCPs office. Symptoms and improve with amoxicillin and prednisone course for possible sinusitis. Follow-up visit at PCPs office 2 weeks ago. Still with intermittent headaches, brain fog, difficulty in concentration, blurred vision symptoms. Few days prior to PCP visit, patient started on metoprolol XL 12.5 daily for BP elevation and palpitations. Outpatient Lyme screen and TSH were normal. Outpatient Zio patch recommended by PCP. 4 days ago, patient noted burning in the middle of her chest along with the palpitations. Persistent headache symptoms. Patient seen at the ER but subsequently discharged. Intermittent symptoms at home even at rest. Outpatient Zio patch read today with final interpretation of reported symptoms correlating with SVT, sinus rhythm and ventricular ectopy. Patient consulted ER for further evaluation. Initial SBP upon arrival at the ER 180s. Currently without chest pain. Complaining of tolerable headache symptoms. 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 Allergies Allergy/AdvReac Type Severity Reaction Status Date / Time No Known Allergies Allergy Verified 02/17/22 17:50 Home Medications Medication Instructions Recorded Confirmed Type docusate sodium 100 mg capsule 100 mg PO DAILY 07/31/21 02/17/22 History (Colace) loratadine 5 mg-pseudoephedrine ER 1 tab PO Q12H PRN 07/31/21 02/17/22 History 120 mg tablet,extended release,12hr (Claritin-D 12 Hour) polyethylene glycol 3350 17 gram 17 g PO QAM 07/31/21 02/17/22 History oral powder packet (Miralax) prenat.vits,janusz,djj-[id number]-zvvyy 1 tab PO QAM 07/31/21 02/17/22 History metoprolol succinate 25 mg 12.5 mg PO QAM 02/14/22 02/17/22 History tablet,extended release 24 hr cholecalciferol (vitamin D3) 25 25 mcg PO DAILY 02/17/22 02/17/22 History mcg (1,000 unit) capsule (Vitamin D3) Past Med/Surg History Medical History Crohn disease IBS (irritable bowel syndrome) Raynauds disease Surgical History History of tonsillectomy Social History Smoking Status: Never smoker Hx Alcohol Use: No Hx Substance Use: No Preferred Language: Tajik Communication Ability: Effective Visual Impairment: Limited Hearing Ability: Normal Customer Support Analyst Required: No Beliefs That Will Affect Care: None marital status: Current Living Situation: Spouse and Family Current Living Situation Comment: Spouse and son current occupational status: employed current occupation: RN at [employer] Other Information That Helps Us Care for You: No Feels Safe at Home: Yes Safety Concerns: Feels Safe At This Time caffeine: Yes (1 cup coffee/day) Dental Care, Regularly: Yes Assistive Devices: Contacts Review of Systems Review of Systems: As per HPI, all 10 systems reviewed, all other ROS negative Physical Exam Physical Exam: GENERAL: Comfortable, pleasant, no respiratory distress SKIN: Normal color, warm HEENT: [place] palpebral conjunctivae, no ptosis, moist buccal mucosa NECK : Supple, no tenderness CHEST : CTA, no tenderness HEART : Tachycardic, no obvious murmurs ABDOMEN: Some distention, nontender EXTREMITIES : No LE swelling/tenderness, no other conspicuous deformities noted NEUROLOGIC : Coherent, no facial asymmetry, no other gross focality Results & Data Results & Data ([facility]) Vital Signs (Past 12 Hours) Vital Signs Temp Pulse Pulse Resp BP BP Pulse Ox 02/17/22 17:33 105 H 17 149/102 H 98 02/17/22 17:01 36.5 C 102 H 20 181/107 H 99 Laboratory Results Laboratory Results WBC 10.16 K/uL (4.8-10.8) 02/17/22 17:11 RBC 4.77 M/uL (4.2-5.4) 02/17/22 17:11 Hgb 15.1 g/dL (12.0-16.0) 02/17/22 17:11 Hct 43.1 % (37-47) 02/17/22 17:11 MCV 90.4 fL (80-100) 02/17/22 17:11 MCH 31.7 pg (25-34) 02/17/22 17:11 MCHC 35.0 g/dL (32-36) 02/17/22 17:11 RDW Std Deviation 42.7 fL (36.4-46.3) 02/17/22 17:11 RDW Coeff of Aleena 12.8 % (11.5-14.5) 02/17/22 17:11 Plt Count 377 K/uL (130-400) 02/17/22 17:11 MPV 9.7 fL (7.4-10.4) 02/17/22 17:11 Immature Gran % (Auto) 0.2 % 02/17/22 17:11 Neut % (Auto) 59.9 % 02/17/22 17:11 Lymph % (Auto) 32.3 % 02/17/22 17:11 [place] % (Auto) 7.1 % 02/17/22 17:11 Eos % (Auto) 0.3 % 02/17/22 17:11 Baso % (Auto) 0.2 % 02/17/22 17:11 Neut # (Auto) 6.09 K/uL (1.4-6.5) 02/17/22 17:11 Lymph # (Auto) 3.28 K/uL (1.2-3.4) 02/17/22 17:11 [place] # (Auto) 0.72 K/uL (0.11-0.59) H 02/17/22 17:11 Eos # (Auto) 0.03 K/uL (0-0.5) 02/17/22 17:11 Baso # (Auto) 0.02 K/uL (0-0.2) 02/17/22 17:11 Immature Gran # (Auto) 0.02 K/uL (0.00-0.02) 02/17/22 17:11 PT 10.8 Seconds (9.0-12.0) 02/17/22 17:11 INR 1.0 (0.9-1.1) 02/17/22 17:11 APTT 24.3 Seconds (21.0-31.0) 02/17/22 17:11 PTT Ratio 0.9 02/17/22 17:11 D-Dimer < 190 ug/L FEU (0-500) 02/17/22 17:11 Sodium 139 mmol/L (136-145) 02/17/22 17:11 Potassium 3.5 mmol/L (3.5-5.1) 02/17/22 17:11 Chloride 102 mmol/L (98-107) 02/17/22 17:11 Carbon Dioxide 27 mmol/L (21-32) 02/17/22 17:11 Anion Gap 10 (3-11) 02/17/22 17:11 BUN 9 mg/dl (6-23) 02/17/22 17:11 Creatinine 0.58 mg/dl (0.6-1.2) L 02/17/22 17:11 Est Cr Clr Drug Dosing 150.9 ml/min 02/17/22 17:11 Est GFR ( Amer) 145.4 ml/min 02/17/22 17:11 Est GFR (Non-Af Amer) 125.4 ml/min 02/17/22 17:11 BUN/Creatinine Ratio 15.5 (10-20) 02/17/22 17:11 Glucose 90 mg/dl (70-99(Fasting)) 02/17/22 17:11 Calcium 10.4 mg/dl (8.5-10.1) H 02/17/22 17:11 Phosphorus 4.0 mg/dl (2.5-4.9) 02/17/22 17:11 Magnesium 2.1 mg/dl (1.7-2.4) 02/17/22 17:11 Total Bilirubin 0.4 mg/dl (0.2-1.0) 02/17/22 17:11 AST 18 U/L (13-39) 02/17/22 17:11 ALT 13 U/L (7-52) 02/17/22 17:11 Alkaline Phosphatase 97 U/L (34-104) 02/17/22 17:11 Troponin I < 0.03 ng/ml (0-0.04) 02/17/22 17:11 Total Protein 8.4 gm/dl (6.0-8.3) H 02/17/22 17:11 Albumin 5.2 gm/dl (3.4-5.0) H 02/17/22 17:11 Globulin 3.2 gm/dl (2.5-4.0) 02/17/22 17:11 Albumin/Globulin Ratio 1.6 (0.9-2) 02/17/22 17:11 Lipase 18 U/L (11-82) 02/17/22 17:11 SARS-CoV-2, RNA, NAAT NEGATIVE (NEGATIVE) 02/17/22 18:17 Impressions Chest X-Ray 02/17/22 18:03 XR chest 1V portable HISTORY: 26 years-old Female cp acute atypical chest pain COMPARISON: Chest radiograph 02/14/2022 TECHNIQUE: Portable AP view of the chest FINDINGS: The cardiomediastinal and hilar silhouettes are within normal limits. There is no pneumothorax, pleural effusion, airspace consolidation or overt pulmonary edema. Bones of the chest appear grossly intact. IMPRESSION: No acute process. ACT 112: Negative or not required by law. The above report was generated using voice recognition software. It may contain grammatical, syntax or spelling errors. Electronically signed by: Shaquille Issa M.D. 02/17/2022 6:[address] head: No acute intracranial abnormality. Diagnostic Findings EKG as per my interpretation: Rate 110, sinus tachycardia, normal axis, no ischemia Code Status & VTE Plan VTE Prophylaxis Plan VTE Prophylaxis will be ordered: Yes (1) Chest pain Chest pain type: unspecified Qualified Code(s): R07.9 - Chest pain, unspecified
--- NOTE | 2022-02-17 20:53 | CT Scan Report ---
CT head/brain wo con CLINICAL HISTORY: 26 years-old Female with maldonado. Acute headache TECHNIQUE: Multiple axial CT images of the head were obtained without contrast. A dose lowering tech nique was utilized adhering to the principles of ALARA. CT DOSE: 537.48 mGy.cm COMPARISON: None. FINDINGS: No acute intracranial hemorrhage, midline shift, intracranial mass, hydrocephalus, territorial ischem ia or abnormal extra-axial collection. The calvarium is intact. The paranasal sinuses, mastoid air cells, and middle ear cavities are clear . IMPRESSION: No acute intracranial abnormality. ACT 112: Negative or not required by law. The above report was generated using voice recognition software. It may contain grammatical, syntax o r spelling errors. Electronically signed by: Shaquille Issa M.D. 02/17/2022 8:52 PM
[2022-02-17 21:29] LABS: Pregnancy Test, Serum Negative (Negative)
[2022-02-17] MEDS ORDERED: GADOBUTROL 65ML VIAL IV ONE (22:00)
[2022-02-17] MEDS ORDERED: NITROGLYCERIN SL 0.4 MG/TAB TAB SL PRN (22:44)
[2022-02-17] MEDS ORDERED: PROMETHAZINE HCL 12.5 MG in SODIUM CHLORIDE 0.9% 50 ML IV PRN (22:44)
[2022-02-17] MEDS ORDERED: LORazepam 2 MG/1 ML VIAL IV PRN (22:44)
[2022-02-17] MEDS ORDERED: MoRPHine SULFATE 2 MG/ML CARP IV PRN (22:44)
[2022-02-17] MEDS ORDERED: traMADol HCL 50 MG TABLET PO PRN (22:44)
--- NOTE | 2022-02-18 00:08 | Emergency Department Note ---
History of Present Illness General Chief Complaint: Chest Pain Stated Complaint: BURNING IN MID CHEST RADIATING OUTWARDS Time Seen by Provider: 02/17/22 17:30 History of Present Illness Provider Complaint: chest pain Onset (ago): month(s) 1 Duration: intermittent Onset: during rest Pain Location: substernal and left chest Pain Radiation: none Severity: moderate Maximum Pain Intensity: 5 Current Pain Intensity: 0 Quality: + aching and + dull Relieved By: + nothing Exacerbated By: + nothing Context: no recent illness, no recent surgery, no recent travel, no trauma/injury or no history of DVT/PE Associated symptoms: no nausea, no diaphoresis, no dyspnea, no syncope, no palpitations, no fever, no cough or no leg swelling Treatments prior to arrival: none Patient reports that her [facility] physician ordered a zio patch monitor for her outpatient and when she got the report from the monitor it stated that there were runs of V. tach and SVT. Patient states her PCP wanted her to see cardiology outpatient however she has been having difficulty seeing them in the outpatient setting. Home Medications Medication Instructions Recorded Confirmed Type docusate sodium 100 mg capsule 100 mg PO DAILY 07/31/21 02/17/22 History (Colace) loratadine 5 mg-pseudoephedrine ER 1 tab PO Q12H PRN 07/31/21 02/17/22 History 120 mg tablet,extended release,12hr (Claritin-D 12 Hour) polyethylene glycol 3350 17 gram 17 g PO QAM 07/31/21 02/17/22 History oral powder packet (Miralax) prenat.vits,janusz,[id number] 1 tab PO QAM 07/31/21 02/17/22 History metoprolol succinate 25 mg 12.5 mg PO QAM 02/14/22 02/17/22 History tablet,extended release 24 hr cholecalciferol (vitamin D3) 25 25 mcg PO DAILY 02/17/22 02/17/22 History mcg (1,000 unit) capsule (Vitamin D3) Allergies Allergy/AdvReac Type Severity Reaction Status Date / Time No Known Allergies Allergy Verified 02/17/22 17:50 Past Med/Surg History Medical History Crohn disease IBS (irritable bowel syndrome) Raynauds disease Surgical History History of tonsillectomy Social History Smoking Status: Never smoker Hx Alcohol Use: No Hx Substance Use: No Preferred Language: Czech Communication Ability: Effective Visual Impairment: Limited Hearing Ability: Normal [employer] Production Required: No Beliefs That Will Affect Care: None marital status: Current Living Situation: Spouse and Family Current Living Situation Comment: Spouse and son current occupational status: employed current occupation: RN at [employer] Other Information That Helps Us Care for You: No Feels Safe at Home: Yes Safety Concerns: Feels Safe At This Time caffeine: Yes (1 cup coffee/day) Dental Care, Regularly: Yes Assistive Devices: Contacts Review of Systems A total of 10 systems reviewed and were otherwise negative Physical Exam Vital Signs Vital Signs - 24 hr 02/17/22 17:01 02/17/22 17:33 02/17/22 17:35 Temperature 36.5 C Temperature Source Temporal Artery Scan Pulse Rate 102 H 101 H Pulse Rate [Apical] 105 H Pulse Rate from SpO2 Sensor 104 H Pulse Rhythm Regular Pulse Strength Normal Respiratory Rate 20 17 16 Respiratory Effort / Characteristics Non-Labored Spontaneous Respiratory Depth Normal Respiratory Pattern Regular Blood Pressure 181/107 H Blood Pressure [Right Arm] 149/102 H Blood Pressure Mean 131 Blood Pressure Mean [Right Arm] 117 Blood Pressure Position Sitting Pulse Oximetry 99 98 99 Oxygen Delivery Method Room Air Room Air Sepsis Recent Fever Within 48 Hours No Sepsis New/Unexplained Change in Mental Status N/A Sepsis Action Taken by Nursing No Action Required 02/17/22 17:40 02/17/22 17:50 02/17/22 18:00 Temperature Temperature Source Pulse Rate 109 H 107 H 112 H Pulse Rate [Apical] Pulse Rate from SpO2 Sensor 107 H 108 H 111 H Pulse Rhythm Pulse Strength Respiratory Rate 17 15 22 Respiratory Effort / Characteristics Respiratory Depth Respiratory Pattern Blood Pressure Blood Pressure [Right Arm] Blood Pressure Mean Blood Pressure Mean [Right Arm] Blood Pressure Position Pulse Oximetry 99 99 99 Oxygen Delivery Method Sepsis Recent Fever Within 48 Hours Sepsis New/Unexplained Change in Mental Status Sepsis Action Taken by Nursing 02/17/22 18:10 02/17/22 18:19 02/17/22 18:20 Temperature Temperature Source Pulse Rate 93 H 102 H 121 H Pulse Rate [Apical] Pulse Rate from SpO2 Sensor 94 H 100 H 116 H Pulse Rhythm Pulse Strength Respiratory Rate 17 25 H 17 Respiratory Effort / Characteristics Respiratory Depth Respiratory Pattern Blood Pressure 135/83 Blood Pressure [Right Arm] Blood Pressure Mean 100 Blood Pressure Mean [Right Arm] Blood Pressure Position Pulse Oximetry 98 99 99 Oxygen Delivery Method Sepsis Recent Fever Within 48 Hours Sepsis New/Unexplained Change in Mental Status Sepsis Action Taken by Nursing 02/17/22 18:30 02/17/22 18:40 02/17/22 18:50 Temperature Temperature Source Pulse Rate 108 H 103 H 98 H Pulse Rate [Apical] Pulse Rate from SpO2 Sensor 111 H 106 H 97 H Pulse Rhythm Pulse Strength Respiratory Rate 13 17 15 Respiratory Effort / Characteristics Respiratory Depth Respiratory Pattern Blood Pressure Blood Pressure [Right Arm] Blood Pressure Mean Blood Pressure Mean [Right Arm] Blood Pressure Position Pulse Oximetry 98 99 97 Oxygen Delivery Method Sepsis Recent Fever Within 48 Hours Sepsis New/Unexplained Change in Mental Status Sepsis Action Taken by Nursing 02/17/22 19:00 02/17/22 19:10 02/17/22 20:06 Temperature Temperature Source Pulse Rate 90 95 H Pulse Rate [Apical] Pulse Rate from SpO2 Sensor 94 H 97 H Pulse Rhythm Pulse Strength Respiratory Rate 15 22 Respiratory Effort / Characteristics Respiratory Depth Respiratory Pattern Blood Pressure 151/104 H Blood Pressure [Right Arm] Blood Pressure Mean 119 Blood Pressure Mean [Right Arm] Blood Pressure Position Pulse Oximetry 97 97 Oxygen Delivery Method Sepsis Recent Fever Within 48 Hours Sepsis New/Unexplained Change in Mental Status Sepsis Action Taken by Nursing 02/17/22 20:10 02/17/22 20:20 02/17/22 20:30 Temperature Temperature Source Pulse Rate Pulse Rate [Apical] Pulse Rate from SpO2 Sensor Pulse Rhythm Pulse Strength Respiratory Rate 22 17 20 Respiratory Effort / Characteristics Respiratory Depth Respiratory Pattern Blood Pressure Blood Pressure [Right Arm] Blood Pressure Mean Blood Pressure Mean [Right Arm] Blood Pressure Position Pulse Oximetry Oxygen Delivery Method Sepsis Recent Fever Within 48 Hours Sepsis New/Unexplained Change in Mental Status Sepsis Action Taken by Nursing Physical Exam GENERAL: She is oriented to person, place, and time. She appears well-developed and well-nourished. She does not appear distressed. HENT: Exam performed. -Head: Normocephalic and atraumatic. -Right Ear: External ear normal. No mastoid tenderness. -Left Ear: External ear normal. No mastoid tenderness. -Mouth/Throat: The oropharynx is clear and moist. No trismus in the jaw. No dental abscesses or uvula swelling. No oropharyngeal exudate or tonsillar abscesses. EYES: Conjunctivae and EOM are normal. Pupils are equal, round, and reactive to light. Right eye exhibits no discharge. Left eye exhibits no discharge. No scleral icterus. NECK: Normal range of motion. Neck supple. No JVD present. No spinous process tenderness present. No carotid bruit present. No rigidity. No tracheal deviation and normal range of motion present. No Brudzinski's sign and no Kernig's sign noted. CV: Normal rate, regular rhythm, normal heart sounds and intact distal pulses. There is no peripheral edema. Palpable radial pulses bue. PULM/CHEST: Effort normal and breath sounds normal. No respiratory distress. No stridor. She has no wheezes. She has no rales. -Chest Wall: She exhibits no tenderness. ABD: The abdomen is soft. Bowel sounds are normal. She has no distension. No mass is present. There is no tenderness. There is no rebound, no guarding, no Price's sign and no tenderness at McBurney's point. Rovsig negative MUSC/SKEL: Normal range of motion. There is no peripheral edema, tenderness or deformity. LYMPH: No cervical adenopathy. NEURO: She is alert and oriented to person, place, and time. She has normal strength. No cranial nerve deficit or sensory deficit. Coordination and gait normal. GCS eye subscore is 4. GCS verbal subscore is 5. GCS motor subscore is 6. Cerebellar tests wnl. SKIN: Skin is warm and dry. She is not diaphoretic. PSYCH: She has a normal mood and affect. Behavior is normal. Judgment and thought content normal. Course Course 1729: The patient was evaluated in room A12. A complete history and physical exam was performed Cardiac monitoring: An order was placed for continuous cardiac monitoring. The monitor shows a rate of 80 with sinus rhythm EMR reviewed. Patient was seen in the emergency department 4 days ago and had a work-up that was negative including a negative troponin and D-dimer. 184: Vital signs stable. Labs and imaging within normal limits. Given the patient's outpatient nurse monitoring device showed episodes of V. tach and SVT the patient will be admitted to the hospital service for cardiology evaluation. Discussed with Dr. Thakkar who will evaluate the patient. Administered Medications Discontinued Medications Famotidine (Famotidine 10 Mg Tablet) 10 mg PO NOW ONE Stop: 02/17/22 20:44 Last Admin: 02/17/22 21:11 Dose: 10 mg Documented by: [id number] Gadobutrol (Gadobutrol 65ml Vial) 7.5 ml IV ONCE ONE Stop: 02/17/22 22:01 Last Admin: 02/17/22 22:01 Dose: 7.5 ml Documented by: [id number] Lactated Ringer's (Lr) 1,000 mls @ 500 mls/hr IV .Q2H ONE Stop: 02/17/22 21:33 Last Infusion: 02/17/22 22:51 Dose: 0 mls/hr Documented by: [id number] Admin: 02/17/22 21:07 Dose: 500 mls/hr Documented by: [id number] Metoprolol Succinate (Metoprolol Succ 25mg Ext Rel Tab) 25 mg PO NOW STA Stop: 02/17/22 19:48 Last Admin: 02/17/22 21:06 Dose: 25 mg Documented by: [id number] Potassium Chloride (Potassium Chloride Crtab 20 Meq Tabcr) 40 meq PO NOW STA Stop: 02/17/22 19:34 Last Admin: 02/17/22 21:06 Dose: 40 meq Documented by: [id number] Medical Decision Making Laboratory Data Result diagrams: 02/17/22 17:11 02/17/22 17:11 Labs: Lab Results 02/17/22 02/17/22 02/17/22 Range/Units 17:11 17:11 17:11 WBC 10.16 (4.8-10.8) K/uL RBC 4.77 (4.2-5.4) M/uL Hgb 15.1 (12.0-16.0) g/dL Hct 43.1 (37-47) % MCV 90.4 (80-100) fL MCH 31.7 (25-34) pg MCHC 35.0 (32-36) g/dL RDW Std Deviation 42.7 (36.4-46.3) fL RDW Coeff of Aleena 12.8 (11.5-14.5) % Plt Count 377 (130-400) K/uL MPV 9.7 (7.4-10.4) fL Immature Gran % (Auto) 0.2 % Neut % (Auto) 59.9 % Lymph % (Auto) 32.3 % [place] % (Auto) 7.1 % Eos % (Auto) 0.3 % Baso % (Auto) 0.2 % Neut # (Auto) 6.09 (1.4-6.5) K/uL Lymph # (Auto) 3.28 (1.2-3.4) K/uL [place] # (Auto) 0.72 H (0.11-0.59) K/uL Eos # (Auto) 0.03 (0-0.5) K/uL Baso # (Auto) 0.02 (0-0.2) K/uL Immature Gran # (Auto) 0.02 (0.00-0.02) K/uL PT 10.8 (9.0-12.0) Seconds INR 1.0 (0.9-1.1) APTT 24.3 (21.0-31.0) Seconds PTT Ratio 0.9 D-Dimer (0-500) ug/L FEU Sodium 139 (136-145) mmol/L Potassium 3.5 (3.5-5.1) mmol/L Chloride 102 (98-107) mmol/L Carbon Dioxide 27 (21-32) mmol/L Anion Gap 10 (3-11) BUN 9 (6-23) mg/dl Creatinine 0.58 L (0.6-1.2) mg/dl Est Cr Clr Drug Dosing 150.9 ml/min Est GFR ( Amer) 145.4 ml/min Est GFR (Non-Af Amer) 125.4 ml/min BUN/Creatinine Ratio 15.5 (10-20) Glucose 90 (70-99(Fasting)) mg/dl Calcium 10.4 H (8.5-10.1) mg/dl Phosphorus (2.5-4.9) mg/dl Magnesium (1.7-2.4) mg/dl Total Bilirubin 0.4 (0.2-1.0) mg/dl AST 18 (13-39) U/L ALT 13 (7-52) U/L Alkaline Phosphatase 97 (34-104) U/L Troponin I < 0.03 (0-0.04) ng/ml Total Protein 8.4 H (6.0-8.3) gm/dl Albumin 5.2 H (3.4-5.0) gm/dl Globulin 3.2 (2.5-4.0) gm/dl Albumin/Globulin Ratio 1.6 (0.9-2) Lipase (11-82) U/L HCG, Qual (Negative) SARS-CoV-2, RNA, NAAT (NEGATIVE) 02/17/22 02/17/22 02/17/22 Range/Units 17:11 17:11 17:11 WBC (4.8-10.8) K/uL RBC (4.2-5.4) M/uL Hgb (12.0-16.0) g/dL Hct (37-47) % MCV (80-100) fL MCH (25-34) pg MCHC (32-36) g/dL RDW Std Deviation (36.4-46.3) fL RDW Coeff of Aleena (11.5-14.5) % Plt Count (130-400) K/uL MPV (7.4-10.4) fL Immature Gran % (Auto) % Neut % (Auto) % Lymph % (Auto) % [place] % (Auto) % Eos % (Auto) % Baso % (Auto) % Neut # (Auto) (1.4-6.5) K/uL Lymph # (Auto) (1.2-3.4) K/uL [place] # (Auto) (0.11-0.59) K/uL Eos # (Auto) (0-0.5) K/uL Baso # (Auto) (0-0.2) K/uL Immature Gran # (Auto) (0.00-0.02) K/uL PT (9.0-12.0) Seconds INR (0.9-1.1) APTT (21.0-31.0) Seconds PTT Ratio D-Dimer < 190 (0-500) ug/L FEU Sodium (136-145) mmol/L Potassium (3.5-5.1) mmol/L Chloride (98-107) mmol/L Carbon Dioxide (21-32) mmol/L Anion Gap (3-11) BUN (6-23) mg/dl Creatinine (0.6-1.2) mg/dl Est Cr Clr Drug Dosing ml/min Est GFR ( Amer) ml/min Est GFR (Non-Af Amer) ml/min BUN/Creatinine Ratio (10-20) Glucose (70-99(Fasting)) mg/dl Calcium (8.5-10.1) mg/dl Phosphorus 4.0 (2.5-4.9) mg/dl Magnesium 2.1 (1.7-2.4) mg/dl Total Bilirubin (0.2-1.0) mg/dl AST (13-39) U/L ALT (7-52) U/L Alkaline Phosphatase (34-104) U/L Troponin I (0-0.04) ng/ml Total Protein (6.0-8.3) gm/dl Albumin (3.4-5.0) gm/dl Globulin (2.5-4.0) gm/dl Albumin/Globulin Ratio (0.9-2) Lipase 18 (11-82) U/L HCG, Qual Negative (Negative) SARS-CoV-2, RNA, NAAT (NEGATIVE) 02/17/22 Range/Units 18:17 WBC (4.8-10.8) K/uL RBC (4.2-5.4) M/uL Hgb (12.0-16.0) g/dL Hct (37-47) % MCV (80-100) fL MCH (25-34) pg MCHC (32-36) g/dL RDW Std Deviation (36.4-46.3) fL RDW Coeff of Aleena (11.5-14.5) % Plt Count (130-400) K/uL MPV (7.4-10.4) fL Immature Gran % (Auto) % Neut % (Auto) % Lymph % (Auto) % [place] % (Auto) % Eos % (Auto) % Baso % (Auto) % Neut # (Auto) (1.4-6.5) K/uL Lymph # (Auto) (1.2-3.4) K/uL [place] # (Auto) (0.11-0.59) K/uL Eos # (Auto) (0-0.5) K/uL Baso # (Auto) (0-0.2) K/uL Immature Gran # (Auto) (0.00-0.02) K/uL PT (9.0-12.0) Seconds INR (0.9-1.1) APTT (21.0-31.0) Seconds PTT Ratio D-Dimer (0-500) ug/L FEU Sodium (136-145) mmol/L Potassium (3.5-5.1) mmol/L Chloride (98-107) mmol/L Carbon Dioxide (21-32) mmol/L Anion Gap (3-11) BUN (6-23) mg/dl Creatinine (0.6-1.2) mg/dl Est Cr Clr Drug Dosing ml/min Est GFR ( Amer) ml/min Est GFR (Non-Af Amer) ml/min BUN/Creatinine Ratio (10-20) Glucose (70-99(Fasting)) mg/dl Calcium (8.5-10.1) mg/dl Phosphorus (2.5-4.9) mg/dl Magnesium (1.7-2.4) mg/dl Total Bilirubin (0.2-1.0) mg/dl AST (13-39) U/L ALT (7-52) U/L Alkaline Phosphatase (34-104) U/L Troponin I (0-0.04) ng/ml Total Protein (6.0-8.3) gm/dl Albumin (3.4-5.0) gm/dl Globulin (2.5-4.0) gm/dl Albumin/Globulin Ratio (0.9-2) Lipase (11-82) U/L HCG, Qual (Negative) SARS-CoV-2, RNA, NAAT NEGATIVE (NEGATIVE) Imaging Data Chest x-ray: Radiologist's impression: XR chest 1V portable HISTORY: 26 years-old Female cp acute atypical chest pain COMPARISON: Chest radiograph 02/14/2022 TECHNIQUE: Portable AP view of the chest FINDINGS: The cardiomediastinal and hilar silhouettes are within normal limits. There is no pneumothorax, pleural effusion, airspace consolidation or overt pulmonary edema. Bones of the chest appear grossly intact. IMPRESSION: No acute process. ACT 112: Negative or not required by law. The above report was generated using voice recognition software. It may contain grammatical, syntax or spelling errors. Electronically signed by: Shaquille Issa M.D. 02/17/2022 6:22 PM Dictated:04/11/22 1821 Transcribed: 02/17/221820 [facility] Narrative 1730: The patient was evaluated in room A12. A complete history and physical exam was performed Cardiac monitoring: An order was placed for continuous cardiac monitoring. The monitor shows a rate of 80 with sinus rhythm EMR reviewed. Patient was seen in the emergency department 4 days ago and had a work-up that was negative including a negative troponin and D-dimer. 1845: Vital signs stable. Labs and imaging within normal limits. Given the patient's outpatient nurse monitoring device showed episodes of V. tach and SVT the patient will be admitted to the hospital service for cardiology evaluation. Discussed with Dr. Thakkar who will evaluate the patient. Impression & Plan Chest pain Discharge Plan Visit Data Chief Complaint: Chest Pain Stated Complaint: BURNING IN MID CHEST RADIATING OUTWARDS Discharge Problem: Chest pain Patient Disposition: Admitted As Inpatient Discharge Instructions Interventions: ED Discharge Assessment Last Done: 02/17/22 21:28
[2022-02-18 06:35] LABS: Basophils # (auto) 0.02 K/uL (0-0.2); Basophils % (auto) 0.2 %; Eosinophils # (auto) 0.09 K/uL (0-0.5); Eosinophils % (auto) 1.1 %; Hematocrit (blood only) 39.4 % (37-47); Hemoglobin 13.4 g/dL (12.0-16.0); Immature Granulocytes # (auto) 0.02 K/uL (0.00-0.02); Immature Granulocytes % (auto) 0.2 %; Lymphocytes # (auto) 2.54 K/uL (1.2-3.4); Lymphocytes % (auto) 31.6 %; Mean Corpuscular Hemoglobin 31.2 pg (25-34); Mean Corpuscular Volume 91.6 fL (80-100); Mean Platelet Volume 9.6 fL (7.4-10.4); Monocytes # (auto) 0.74 K/uL (0.11-0.59); Monocytes % (auto) 9.2 %; Neutrophils # (auto) 4.62 K/uL (1.4-6.5); Neutrophils % (auto) 57.7 %; Platelet Count 302 K/uL (130-400); RDW Coefficient of Variation 13.1 % (11.5-14.5); White Blood Count 8.03 K/uL (4.8-10.8)
[2022-02-18 07:13] LABS: Anion Gap 6 (3-11); BUN Creatinine Ratio 15.7 (10-20); Blood Urea Nitrogen 8 mg/dl (6-23); Calcium 9.2 mg/dl (8.5-10.1); Carbon Dioxide 26 mmol/L (21-32); Chloride 106 mmol/L (98-107); Creatinine Clr Calc Pharmacy 171.6 ml/min; Est GFR (African American) > 150.0 ml/min; Est GFR (Non-African American) 130.9 ml/min; Glucose 87 mg/dl (70-99(Fasting)); Sodium 138 mmol/L (136-145)
--- NOTE | 2022-02-18 07:13 | Magnetic Resonance Report ---
MRI OF THE BRAIN COMBO CLINICAL HISTORY: Headache. Visual changes. COMPARISON STUDY: CT of the brain dated 02/17/2022. TECHNIQUE: MRI of the brain was performed utilizing various T1 and T2-weighted sequences in the axial , sagittal, and coronal planes. Contrast-enhanced sequences were acquired following the administratio n of 7.5 cc of Gadavist. FINDINGS: Brain parenchyma: The brain parenchyma is normal in appearance. There is no hemorrhage or mass effect . There is no restricted diffusion to suggest acute ischemia. No enhancing mass lesion is identified on the postcontrast images. Herrera-white matter differentiation is preserved. No extra-axial fluid sudhir ection is seen. The cerebellar tonsils are normal in configuration. Ventricles, sulci, and cisterns: Normal in configuration. Pituitary and sella: Unremarkable. Intracranial vasculature: Normal flow voids are maintained at the skull base. Orbits: The bony orbits are grossly intact. Orbital contents are normal in appearance. Sinuses and mastoids: Clear. Calvarium: Unremarkable. Cervical cord: Partially visualized cervical spinal cord is normal in morphology and signal intensity . IMPRESSION: No acute intracranial abnormality. ACT 112: Negative or not required by law. Electronically signed by: Jose Owens M.D. 02/18/2022 7:11 AM
--- NOTE | 2022-02-18 08:45 | Cardiology Consultation ---
Date of Consultation February 18, 2022 Assessment & Plan (1) Chest pain: (2) Palpitations: (3) Dizziness: (4) SVT (supraventricular tachycardia): Concerns of chest pain, dizziness, palpitations. Zio showed symptoms correlating with SVT/PVCs- improved symptoms on increased dose of metoprolol. ? Episodes of VT vs. SVT with aberrancy. -Discussed with patient the risk of medications specifically beta blockers and other antihypertensive agents while breast feeding- patient is actively starting to wean off . -For now- okay to continue metoprolol succinate 25 mg daily since her symptoms have improved. May need to increase further vs switching to Labetalol. - Further recommendations pending echo results. (5) Gestational hypertension: (6) HTN, goal below 130/80: H/o gestation HTN- not treated medically. Delivered 2 weeks early because of this. Now 6 months and weaning off of breast feeding. Systolic controlled, diastolics elevated. ? Dizziness correlating with elevated BPs. - Would use caution with antihypertensives in women of child baring age. Can consider transitioning to labetalol vs adding nifedipine should blood pressures worsening. - Echo results pending. Case discussed with Dr. Rodriguez. As long as echo comes back unremarkable, okay to discharge home from a cardiology standpoint. I will arrange cardiology follow up in 4 weeks. Supervising Physician Co-Signing Physician Notes Patient seen and examined with Natty CURIEL. Agree with findings and assessment as above. Structurally normal heart on echo. Once again, a lengthy discussion was had with the patient on the risk of any antihypertensive medications appearing in breastmilk and possible consequences for the baby. She states that she is currently looking into transitioning to formula. When she does consideration will be given to changing metoprolol to either an GLENN or calcium channel vanessa. Okay to DC to home at this time. History of Present Illness Reason for Consultation: Palpitations, HTN Requesting Physician: Monique madrid Attending Physician: Yandel Daley MD History of Present Illness 26 year old female with concerns of chest pain, palpitations, and labile blood pressures. She is about 6 months - she carries a history of gestational HTN that occurred at the end of her . She was not treated with any medications, she delivered 2 weeks early because of this.Notes that at the end of her she started to feel very "strange", having symptoms similar to what she is feeling now. Has been following with her PCP who started her on metoprolol. On 02/14 she developed a burning sensations in the middle of her chest which made her present to the ED. Symptoms were not associated with exertion, occurred at rest. No shortness of breath, Workup was negative- labs stable. Trops negative. EKG showed mild ST. Treated with IVF, patient felt better and was discharged same day. Represented to the ED on 02/17 with similar complaints, chest pain now radiating to the left. EKG again showed ST with mild ST depression in V4 and V5. Patient was admitted for further evaluation. Outpatient zio monitor on 01/31 showed- SR with average HR of 81 bpm. She had 2 episodes of Vtach vs. ? SVT with aberrancy. Triggered events correlated with SVT, SR, and PVCs. Labs done were unremarkable. Trop again negatives. CXR normal. Head CT and brain MRI unremarkable. Since admission BPs have improved. Echo results pending. Tele overnight and this morning: SR 70-90s with PACs Upon entrance into the room, patient was sitting up in bed in no acute distress. Feeling well. No further episodes of chest discomfort yet today. Has not been up and moving yet today. When she is having the palpitations she will become dizzy and presyncopal. Has never lost consciousness, feels very anxious after these episodes. No orthopnea, PND, or increased lower extremity edema. States that since metoprolol was increased to 25 mg daily she has been feeling better. She is working on weaning off of breast feeding. No prior cardiac history. Denies any pertinent family history PAST MEDICAL HISTORY: H/o gestational HTN, delivered 08/2021 (2 weeks early) Crohn's disease IBS Allergies Allergy/AdvReac Type Severity Reaction Status Date / Time No Known Allergies Allergy Verified 02/17/22 17:50 Home Medications Medication Instructions Recorded Confirmed Type docusate sodium 100 mg capsule 100 mg PO DAILY 07/31/21 02/17/22 History (Colace) loratadine 5 mg-pseudoephedrine ER 1 tab PO Q12H PRN 07/31/21 02/17/22 History 120 mg tablet,extended release,12hr (Claritin-D 12 Hour) polyethylene glycol 3350 17 gram 17 g PO QAM 07/31/21 02/17/22 History oral powder packet (Miralax) prenat.vits,janusz,von-ljup-calwm 1 tab PO QAM 07/31/21 02/17/22 History metoprolol succinate 25 mg 12.5 mg PO QAM 02/14/22 02/17/22 History tablet,extended release 24 hr cholecalciferol (vitamin D3) 25 25 mcg PO DAILY 02/17/22 02/17/22 History mcg (1,000 unit) capsule (Vitamin D3) Patient History Medical History Crohn disease IBS (irritable bowel syndrome) Raynauds disease Surgical History History of tonsillectomy Social History Smoking Status: Never smoker Hx Alcohol Use: No Hx Substance Use: No Preferred Language: Hebrew Communication Ability: Effective Visual Impairment: Limited Hearing Ability: Normal Senior Financial Reporting Analyst Required: No Beliefs That Will Affect Care: None marital status: Current Living Situation: Spouse and Family Current Living Situation Comment: Spouse and son current occupational status: employed current occupation: RN at [employer] Other Information That Helps Us Care for You: No Feels Safe at Home: Yes Safety Concerns: Feels Safe At This Time caffeine: Yes (1 cup coffee/day) Dental Care, Regularly: Yes Assistive Devices: None Review of Systems Review of Systems: All systems reviewed & are unremarkable except as noted in HPI & below Physical Exam Physical Exam: General: No acute distress. A+Ox3. HEENT: Normocephalic. Atraumatic. Conjunctiva and sclera clear. NECK: No carotid bruits. No JVD. Carotid upstrokes are brisk. Heart: RRR. S1 and S2 noted without murmur, rubs, gallops. PMI non displaced. Lungs: Clear to auscultation. No wheezes, rhonchi, rales. Abdomen: Normal bowel sounds. Soft. Nontender. No masses or organomegaly. No abdominal bruits. Extremities: No edema. No clubbing or cyanosis. Pulses: radial=2/4, posterior tibial=2/4, dorsalis pedis = 2/4. NEURO: No focal deficits. PSYCH: Normal. Results & Data ([facility]) Vital Signs (Past 12 Hours) Vital Signs Temp Pulse Pulse Pulse Resp BP BP 02/18/22 08:00 36.7 C 76 16 126/91 02/18/22 04:24 36.7 C 78 14 107/60 02/17/22 23:09 82 02/17/22 22:53 37.1 C 95 H 16 133/96 02/17/22 21:28 79 12 142/94 H 02/17/22 21:10 105 H 17 02/17/22 21:00 101 H 19 02/17/22 20:51 91 H 22 135/86 02/17/22 20:30 20 Pulse Ox 02/18/22 08:00 100 02/18/22 04:24 98 02/17/22 23:09 02/17/22 22:53 100 02/17/22 21:28 98 02/17/22 21:10 02/17/22 21:00 02/17/22 20:51 02/17/22 20:30 Laboratory Results Cardiac Enzymes 02/17/22 Range/Units 17:11 AST 18 (13-39) U/L Troponin I < 0.03 (0-0.04) ng/ml Coagulation 02/17/22 Range/Units 17:11 PT 10.8 (9.0-12.0) Seconds APTT 24.3 (21.0-31.0) Seconds CBC 02/17/22 02/18/22 Range/Units 17:11 06:14 WBC 10.16 8.03 (4.8-10.8) K/uL RBC 4.77 4.30 (4.2-5.4) M/uL Hgb 15.1 13.4 (12.0-16.0) g/dL Hct 43.1 39.4 (37-47) % Plt Count 377 302 (130-400) K/uL Neut # (Auto) 6.09 4.62 (1.4-6.5) K/uL Lymph # (Auto) 3.28 2.54 (1.2-3.4) K/uL Ellis # (Auto) 0.72 H 0.74 H (0.11-0.59) K/uL Eos # (Auto) 0.03 0.09 (0-0.5) K/uL Baso # (Auto) 0.02 0.02 (0-0.2) K/uL Comprehensive Metabolic Panel 02/17/22 02/18/22 Range/Units 17:11 06:14 Sodium 139 138 (136-145) mmol/L Potassium 3.5 4.0 (3.5-5.1) mmol/L Chloride 102 106 (98-107) mmol/L Carbon Dioxide 27 26 (21-32) mmol/L BUN 9 8 (6-23) mg/dl Creatinine 0.58 L 0.51 L (0.6-1.2) mg/dl Glucose 90 87 (70-99(Fasting)) mg/dl Calcium 10.4 H 9.2 (8.5-10.1) mg/dl AST 18 (13-39) U/L ALT 13 (7-52) U/L Alkaline Phosphatase 97 (34-104) U/L Total Protein 8.4 H (6.0-8.3) gm/dl Albumin 5.2 H (3.4-5.0) gm/dl Intake and Output 02/17/22 02/18/22 02/18/22 22:59 06:59 14:59 Intake Total 866.667 / 866.667 Output Total 500 / 500 Balance 866.667 / 366.667 -500 / 366.667 Intake: IV 866.667 / 866.667 Lactated Ringer's 1,000 ml @ 866.667 / 866.667 500 mls/hr IV .Q2H ONE Rx#: [id number] Output: Urine 500 / 500 Other: # Unmeasured Voids 1 Weight 78.2 kg 72.9 kg Weight Measurement Method Standing Scale Standing Scale Diagnostic Findings ECHO 02/18/2022 PENDING Outpatient Zio 01/2022 Patient had a min HR of 47 bpm, max HR of 187 bpm, and avg HR of 81 bpm. Predominant underlying rhythm was Sinus Rhythm. Slight P wave morphology changes were noted. 2 Ventricular Tachycardia runs occurred, the run with the fastest interval lasting 6 beats with a max rate of 130 bpm, the longest lasting 6 beats with an avg rate of 112 bpm. Episodes of Ventricular Tachycardia may be Supraventricular Tachycardia with possible aberrancy. 2 Supraventricular Tachycardia runs occurred, the run with the fastest interval lasting 12 beats with a max rate of 187 bpm (avg 175 bpm); the run with the fastest interval was also the longest. Supraventricular Tachycardia was detected within +/- 45 seconds of symptomatic patient event(s). Isolated SVEs were rare (<1.0%), SVE Couplets were rare (<1.0%), and SVE Triplets were rare (<1.0%). Isolated VEs were rare (<1.0%), and no VE Couplets or VE Triplets were present. Ventricular Bigeminy was present. Final Interpretation : Reported symptoms correlate with supraventricular tachycardia, sinus rhythm, and ventricular ectopy. (1) Chest pain Chest pain type: unspecified Qualified Code(s): R07.9 - Chest pain, unspecified
[2022-02-18] MEDS ORDERED: FAMOTIDINE 10 MG TABLET PO SCH (09:00)
[2022-02-18] MEDS ORDERED: METOPROLOL SUCC 25MG EXT REL TAB PO SCH (09:00)
[2022-02-18] MEDS ORDERED: PRENATAL VITAMIN 1 TAB PO SCH (09:00)
[2022-02-18] MEDS ORDERED: DOCUSATE SODIUM 100 MG CAP PO SCH (09:00)
[2022-02-18] MEDS ORDERED: POLYETHYLENE (MIRALAX) 17 GM PACK PO SCH (09:00)
--- NOTE | 2022-02-18 16:56 | Discharge Summary ---
Date of Service February 18, 2022 Admission HPI Per Admitting Provider History obtained from patient and records. Medical history significant for Crohn's disease, gestational hypertension as per records. Last confinement 2020 under OB service for childbirth. Last month, patient noted lightheadedness symptoms, sensation that she is about to pass out with intermittent palpitations. No chest pain, no S OB. SBP noted to be 170s at work. No unusual stress except for new baby. Patient seen at PCPs office. Symptoms and improve with amoxicillin and prednisone course for possible sinusitis. Follow-up visit at PCPs office 2 weeks ago. Still with intermittent headaches, brain fog, difficulty in concentration, blurred vision symptoms. Few days prior to PCP visit, patient started on metoprolol XL 12.5 daily for BP elevation and palpitations. Outpatient Lyme screen and TSH were normal. Outpatient Zio patch recommended by PCP. 4 days ago, patient noted burning in the middle of her chest along with the palpitations. Persistent headache symptoms. Patient seen at the ER but subsequently discharged. Intermittent symptoms at home even at rest. Outpatient Zio patch read today with final interpretation of reported symptoms correlating with SVT, sinus rhythm and ventricular ectopy. Patient consulted ER for further evaluation. Initial SBP upon arrival at the ER 180s. Currently without chest pain. Complaining of tolerable headache symptoms. 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 Appears well. Breathing comfortably on room air. HR well controlled on telemetry Discharge Data Allergies Allergy/AdvReac Type Severity Reaction Status Date / Time No Known Allergies Allergy Verified 02/17/22 17:50 Consultations 02/17/22 18:42 ED Decision to Admit Stat 02/17/22 22:44 Consult Cardiology Routine Ordered Studies 02/17/22 20:29 CT head/brain wo con Urgent 02/17/22 21:06 MR brain wo/w con Urgent Hospital Course Ms Trini Siddiqui is a 26 year old female with history of gestational hypertension and Crohn's disease not on maintenance therapy presented to ER 02/17 with palpitations and upon arrival SBP noted to be elevated in 170. She was recently started Toprol 12.5mg by her PCP for palpitations and elevated SBP. She also recently had a Zio patch placed. She was admitted here for above symptoms. Her Toprol was increased to 25mg daily with improvement of her HR and palpitations. She was seen by Cardiology and felt to have SVT. They discussed with her adverse effects of being on BB and breast feeding and she is reportedly weaning her baby already. She will fol low up with Cardiology in 4 weeks. Her TTE here was unremarkable. In addition, she reports a history of intermittent headaches associated with blurry vision. MRI brain here was unremarkable. Would recommend ophthalmology evaluation. Consideration of complex migraine if ongoing symptoms. Follow up with PCP Total Time Total Time Spent Total Time Spent (In Minutes): 35 Discharge Plan Discharge Items Patient Disposition: Home - Self-Care Reason For Visit: CP, PALPITATIONS Discharge Diagnosis: Palpitations SVT, resolved Condition on Discharge: Good Activity: Resume your previous activity Non-emergency contact: Primary Care Provider and Drier Attendant Call non-emergency contact if: you have any medication questions and your sym ptoms worsen Follow-up/Referrals: Chaz Rodriguez DO [Physician] - Angela Skaggs MD [Primary Care Provider] - (Date & Time 02/24/2022 1:00 PM Provider Angela Skaggs MD Department Family Medicine [facility] ) Diet: Regular Addtl Attending Provider Instructions: Your metoprolol dose was increased to 25mg daily. Please continue your medication at this dose. Please follow up with your Drier Attendant in 4 weeks Pending Studies at Discharge: No Stand-Alone Forms: My [facility], Work/School Release, Smoking Cessation Medications and DC Order Prescriptions: New metoprolol succinate 25 mg Tablet Extended Release 24 Hr 25 mg PO QAM Qty: 30 RF: 1 Continued cholecalciferol (vitamin D3) [Vitamin D3] 25 mcg (1,000 unit) Capsule 25 mcg PO DAILY RF: 0 polyethylene glycol 3350 [Miralax] 17 gram Powder In Packet 17 g PO QAM RF: 0 Claritin-D 12 Hour 5-120 mg Tablet Extended Release 12 Hr 1 tab PO Q12H PRN (Reason: Congestion) RF: 0 docusate sodium [Colace] 100 mg Capsule 100 mg PO DAILY RF: 0 prenat.vits,janusz,qkq-qjcu-tmnnq Tablet 1 tab PO QAM RF: 0 Discontinued metoprolol succinate 25 mg tablet extended release 24 hr 12.5 mg PO QAM RF: 0 Discharge Orders: Discharge Order (Routine); Ordered 02/18/22 Ordered By: Yandel Daley Admission Data Admit Date/Time: 02/17/22 20:38 Attending Provider: Yandel Daley Admit Provider: Balbir Roman Primary Care Provider: Angela Skaggs Other Providers: Reese Smith ; Chaz Rodriguez ; Melvin Rios ; Tesfaye Campbell ; Curtis Posey ; Justin Segura ; Vicente Casanova ; Adriana Guevara ; Viv Otero ; Natty Ramirez ; Joe Page Other Interventions: Discharge Summary Assessment (RN) Last Done: 02/18/22 15:25
--- NOTE | 2022-02-18 22:15 | Electrocardiogram Report ---
Test Reason : Blood Pressure : / mmHG Vent. Rate : 110 BPM Atrial Rate : 110 BPM P-R Int : 182 ms QRS Dur : 090 ms QT Int : 336 ms P-R-T Axes : 054 052 052 degrees QTc Int : 454 ms Sinus tachycardia Possible Left atrial enlargement Nonspecific ST abnormality Abnormal ECG When compared with ECG of 14-FEB-2022 16:23, Nonspecific ST abnormality is now Present Confirmed by Torsten Garcia ([id number]) on 02/18/2022 10:15:02 PM Referred By: REFERRED SELF Confirmed By:Torsten Garcia
== END 2022-02-18 15:37 | disposition home or self-care (01) ==
LOC: ED 16:58 → 2E 16:58
DX: R07.2 Precordial pain; I10 Essential (primary) hypertension; I47.1 Supraventricular tachycardia; Z79.899 Other long term (current) drug therapy; R00.2 Palpitations; H53.8 Other visual disturbances; R42 Dizziness and giddiness

== ENCOUNTER 2023-02-16 12:43 | Inpatient (IN) ==
[2023-02-16] MEDS ORDERED: LIDOCAINE 1% LOCAL 20 ML VIAL INFIL PRN (12:55)
[2023-02-16] MEDS ORDERED: OXYTOCIN 30 UNITS/500 ML BAG IV PRN (12:55)
--- NOTE | 2023-02-16 13:19 | History & Physical Report ---
Date of Service February 16, 2023 Assessment & Plan (1) Gestational hypertension: Plan: Admit for induction of labor IV fluids Follow vitals, if severe range blood pressure start magnesium sulfate for seizure prophylaxis and treat blood pressures appropriately with IV medications Misoprostol sublingual 25 mcg every 4 hours, epidural if patient requests Plan for AROM and start oxytocin after patient has made cervical change and cervix is softened Anticipate spontaneous vaginal delivery (2) ASCUS with positive high risk HPV: Plan: Plan to follow-up (3) SVT (supraventricular tachycardia): Plan: Patient to be followed as appropriate, (4) Crohn's disease of ileum: Plan: Not currently on medication, will continue to follow Admission and Anticipated Discharge Date Admission Date: February 16, 2023 History of Present Illness Chief Complaint: IOL for GHTN at 37 weeks Primary Care Provider: Clovis Rashid MD Patient is a 27-year-old -0-1-1 at 37 weeks and 2 days who is here for induction of labor for gestational hypertension based on elevated blood pressure 4 hours apart. Patient is dated by last menstrual period consistent with 8-week ultrasound. Patient denies contractions, leaking of fluid or vaginal bleeding upon presentation. Notes good movement. She denies headache, blurry vision, right upper quadrant epigastric pain. Otherwise feeling well has been complicated by PE SVT which she was diagnosed at 30 weeks at [facility] emergency department, takes labetalol 100 mg twice daily as needed. She has a history of gestational hypertension which she was induced in her last . She also has a history of maternal Crohn's disease, with serial growth ultrasounds. This is currently in remission, not currently on any medications. Patient also had ASCUS with high risk HPV Pap at [facility] OB, colposcopy and September 2022 was normal, plan to repeat Allergies Allergy/AdvReac Type Severity Reaction Status Date / Time No Known Allergies Allergy Verified 12/30/22 15:19 Home Medications Medication Instructions Recorded Confirmed Type docusate sodium 100 mg capsule 100 mg PO DAILY 07/31/21 12/30/22 History (Colace) loratadine 5 mg-pseudoephedrine ER 1 tab PO Q12H PRN Congestion 07/31/21 12/30/22 History 120 mg tablet,extended release,12hr (Claritin-D 12 Hour) polyethylene glycol 3350 17 gram 17 g PO QAM 07/31/21 12/30/22 History oral powder packet (Miralax) prenat.vits,janusz,kuf-ppuo-czecx 1 tab PO QAM 07/31/21 12/30/22 History Patient History Medical History Chest pain Crohn disease Dizziness Gestational hypertension HTN, goal below 130/80 IBS (irritable bowel syndrome) Palpitations Raynauds disease Surgical History History of tonsillectomy Social History Smoking Status: Never smoker Second Hand Exposure: No; Do You Dip or Chew Tobacco: No; Tobacco Cessation Education Requested by Patient: No Hx Alcohol Use: No Hx Substance Use: No Preferred Language: Cuban Communication Ability: Effective Visual Impairment: Limited Hearing Ability: Normal Telegraphic Typewriter Installer Required: No Beliefs That Will Affect Care: None marital status: Current Living Situation: Family Current Living Situation Comment: Pt lives with and son. No pets current occupational status: employed current occupation: RN at [employer] Other Information That Helps Us Care for You: No Feels Safe at Home: Yes Safety Concerns: Feels Safe At This Time caffeine: Yes (1 cup coffee/day) Dental Care, Regularly: Yes Assistive Devices: None OB History x1 2020 SCRAP CHARGER History See record Review of Systems All systems reviewed & are unremarkable except as noted in HPI & below Physical Exam Constitutional: WD/WN, vitals as above Respiratory: normal respiratory effort, lungs clear to auscultation Cardiovascular: RRR, no murmur, no edema Gastrointestinal (Abdomen): normal bowel sounds, soft, nontender, no hepatosplenomegaly EFW 3400g Vertex by Russell's Genitourinary: no vaginal lesions, no adnexal mass OB Exam Abdomen: + fundal height, + heart tones and + vertex Cervix: 2/50/-3, sutures felt Membranes swept Results & Data Vital Signs (Past 12 Hours) Vital Signs Temp Pulse Resp BP 02/16/23 12:54 36.8 C 95 H 16 138/89 02/16/23 12:51 95 H 138/89 Monitoring External Monitor heart tracing: Baseline 145, moderate variability, positive accelerations, no decelerations, category 1 tracing Tocodynamometer Irregular contractions
[2023-02-16 13:26] LABS: Hematocrit (blood only) 34.6 % (37.0-47.0); Hemoglobin 12.2 g/dl (12.0-16.0); Mean Corpuscular Hemoglobin 31.1 pg (25.0-34.0); Mean Corpuscular Hgb Conc 35.3 g/dL (32.0-36.0); Mean Corpuscular Volume 88.3 fL (80.0-100.0); Mean Platelet Volume 10.9 fL (9.4-12.4); Platelet Count 260 K/uL (130-400); RDW Coefficient of Variation 12.3 % (11.5-14.5); RDW Standard Deviation 39.5 fL (36.4-46.3); Red Blood Count 3.92 M/uL (4.20-5.40); White Blood Count 9.94 K/ul (4.8-10.8)
[2023-02-16 13:39] LABS: Alanine Aminotransferase 11 U/L (7-52); Albumin Globulin Ratio 1.2 (0.9-2); Albumin Level 3.4 gm/dl (3.4-5.0); Alkaline Phosphatase 157 U/L (34-104); Anion Gap 9 (3-11); Aspartate Aminotransferase 17 U/L (13-39); BUN Creatinine Ratio 23.7 (10-20); Bilirubin,Total 0.2 mg/dl (0.2-1.0); Blood Urea Nitrogen 9 mg/dl (6-23); Calcium 8.6 mg/dl (8.6-10.3); Carbon Dioxide 20 mmol/L (21-32); Chloride 107 mmol/L (98-107); Creatinine Clr Calc Pharmacy 259.9 ml/min; Est GFR (African American) > 150.0 ml/min; Est GFR (Non-African American) 143.2 ml/min; Globulin 2.8 gm/dl (2.5-4.0); Glucose 125 mg/dl (70-99(Fasting)); Potassium 3.7 mmol/L (3.5-5.1); Sodium 136 mmol/L (136-145); Total Protein 6.2 gm/dl (6.0-8.3)
[2023-02-16] MEDS: miSOPROStoL 25 MCG TAB SL SCH ×3 (13:40→22:30)
--- NOTE | 2023-02-16 19:00 | Obstetrical Progress Note ---
Date of Service February 16, 2023 Assessment & Plan (1) Gestational hypertension: Plan: Patient is status post misoprostol 25 mcg sublingual x2 doses Plan to repeat every 4 hours Plan for AROM and start oxytocin after patient has made cervical change and cervix is softened Anticipate spontaneous vaginal delivery (2) ASCUS with positive high risk HPV: Plan: Plan to follow-up (3) SVT (supraventricular tachycardia): Plan: Patient to be followed as appropriate, (4) Crohn's disease of ileum: Plan: Not currently on medication, will continue to follow Admission and Anticipated Discharge Date Admission Date: February 16, 2023 Subjective Patient having some discomfort with contractions at this time, declines epidural currently No other complaint Physical Exam Genitourinary: heart tracing: Baseline 150, moderate variability, positive accelerations, variable decelerations at times Contractions every 2 to 4 minutes Cervix: 2/50/-2, soft anterior Results & Data Vital Signs (Past 12 Hours) Vital Signs Temp Pulse Resp BP 02/16/23 12:54 36.8 C 95 H 16 138/89 02/16/23 18:40 36.8 C 82 16 140/81 02/16/23 18:39 90 138/92 02/16/23 17:43 93 H 140/97 02/16/23 16:30 78 132/83 02/16/23 15:01 87 129/85 02/16/23 12:51 95 H 138/89
[2023-02-17] MEDS: miSOPROStoL 25 MCG TAB SL SCH ×3 (04:30→23:22)
[2023-02-17] MEDS: LACTATED RINGER'S 1,000 ML IV PRN ×2 (04:32→05:56)
[2023-02-17] MEDS ORDERED: OXYTOCIN 30 UNITS/500 ML BAG IV PRN ×2 (04:36→07:57)
[2023-02-17] MEDS ORDERED: ePHEDrine sulfate 50 MG/ML AMP ONE (04:37)
[2023-02-17] MEDS ORDERED: SODIUM CHLORIDE 0.9% PF INJ 10 ML VIAL ONE (04:38)
[2023-02-17] MEDS ORDERED: BUPIVACAINE 0.25% PF 30 ML VIAL ONE (04:38)
[2023-02-17] MEDS ORDERED: LIDOCAINE 2%/EPINEPHRINE 1:200,000 20 ML PF ONE (04:38)
[2023-02-17] MEDS ORDERED: fentaNYL 2MCG/ML ROPIVACAINE 1.25MG/ML 100 ML BAG EPI ONE (04:38)
[2023-02-17] MEDS ORDERED: fentaNYL citrate PF 100 MCG/2 ML VIAL ONE (04:38)
--- NOTE | 2023-02-17 04:38 | Obstetrical Progress Note ---
Date of Service February 17, 2023 Assessment & Plan (1) Gestational hypertension: Plan: Patient is status post misoprostol 25 mcg sublingual x3 doses Plan for epidural Start oxytocin for augmentation Anticipate spontaneous vaginal delivery (2) ASCUS with positive high risk HPV: Plan: Plan to follow-up (3) SVT (supraventricular tachycardia): Plan: Patient to be followed as appropriate, (4) Crohn's disease of ileum: Plan: Not currently on medication, will continue to follow Admission and Anticipated Discharge Date Admission Date: February 16, 2023 Subjective Patient requesting epidural Physical Exam Genitourinary: FHT: baseline 140, moderate variability, positive accelerations or symptoms, variable decelerations Tocometer: Roberto every 3 to 4 minutes Cervix: 80/-1 checked by RN, noted SROM Results & Data Vital Signs (Past 12 Hours) Vital Signs Temp Pulse Resp BP 02/16/23 19:00 36.8 C 18 02/17/23 03:26 96 H 128/83 02/17/23 02:55 18 02/17/23 02:55 36.6 C 18 02/16/23 22:32 36.7 C 70 16 118/75 02/16/23 19:03 92 H 131/84 02/16/23 18:40 36.8 C 82 16 140/81 02/16/23 18:39 90 138/92 02/16/23 17:43 93 H 140/97
[2023-02-17] MEDS ORDERED: diphenhydrAMINE 50 MG/ML VIAL IV PRN (05:02)
[2023-02-17] MEDS ORDERED: NALBUPHINE HCL INJ 10 MG/ML AMP IV PRN (05:02)
[2023-02-17] MEDS ORDERED: fentaNYL 2MCG/ML ROPIVACAINE 1.25MG/ML 100 ML BAG EPI PRN (05:02)
[2023-02-17] MEDS ORDERED: NALOXONE HCL 1 MG in SODIUM CHLORIDE 0.9% 1000ML 1,000 ML IV PRN (05:02)
[2023-02-17] MEDS ORDERED: ONDANSETRON INJ 2 MG/ML 2 ML VIAL IV PRN (05:02)
[2023-02-17] MEDS ORDERED: ePHEDrine sulfate 50 MG/ML AMP IV PRN (05:02)
[2023-02-17] MEDS ORDERED: NALOXONE HCL 0.4 MG/1 ML VIAL/CARP IV PRN (05:02)
--- NOTE | 2023-02-17 05:03 | Anesthesiology Consultation ---
Date of Service February 17, 2023 Assessment & Plan ASA ASA3 Proposed Anesthesia Anesthesia Type: Labor Epidural Risk / Benefits Reviewed With: PT / POA / Parent / Guardian, Accepts Plan and Informed Consent Obtained History Height/Weight Height: 5 ft 8 in Weight: 92.533 kg Allergies Allergy/AdvReac Type Severity Reaction Status Date / Time No Known Allergies Allergy Verified 12/30/22 15:19 Medications Home Medications Medication Instructions Recorded Confirmed Last Taken docusate sodium 100 mg capsule 100 mg PO DAILY 07/31/21 02/16/23 02/15/23 08:00 (Colace) polyethylene glycol 3350 17 gram 17 g PO QAM 07/31/21 02/16/23 02/15/23 21:00 oral powder packet (Miralax) prenat.vits,janusz,[id number] 1 tab PO QAM 07/31/21 02/16/23 02/15/23 20:00 Active Medications Generic Name Dose Route Start Last Admin Trade Name Freq PRN Reason Stop Dose Admin Lactated Ringer's 1,000 mls @ 125 mls/hr 02/16/23 12:55 02/17/23 05:27 Lr IV 02/18/23 12:54 999 mls/hr .Q8H PRN Infusion L&D Protocol Protocol Misoprostol 25 mcg 02/16/23 13:30 02/17/23 04:30 Misoprostol 25 Mcg Tab SL 03/18/23 13:29 Not Given Q4H VALERIE Ropivacaine 100 ml 02/17/23 05:02 02/17/23 05:42 Fentanyl 2mcg/Ml Ropivacaine 1.25mg/Ml 100 Ml Bag EPI 02/18/23 05:01 100 ml PRN PRN Administration Pain R/T Labor Protocol Past Medical History Medical History Chest pain Crohn disease Dizziness Gestational hypertension HTN, goal below 130/80 IBS (irritable bowel syndrome) Palpitations Raynauds disease Exercise / Class Metabolic Activity II 4-5 Yardwork/Stairs/Walk up hill Past Surgical History Surgical History History of tonsillectomy Past Anesthesia History No Hx of Anesthesia Complications and No Family Hx of Anesthesia Complications History of PONV No Hx of PONV and No Hx of Motion Sickness Social History Smoking Status: Never smoker Do You Dip or Chew Tobacco: No Hx Alcohol Use: No Hx Substance Use: No substance use type: does not use Review of Systems denies fever/cough/ colds/ chest pain/ SOB/ SAGAR denies SAGAR Physical Exam Vital Signs Last Vital Signs Temp 36.7 C 02/17/23 04:55 Pulse 101 H 02/17/23 05:47 Resp 18 02/17/23 04:55 BP 102/64 02/17/23 05:47 Pulse Ox 100 02/17/23 05:44 ENMT Mouth: no TMJ abnormality and no dentition abnormality Thyromental Distance: > or= 3.5 Finger Breadths Mallampati Class: II Neck neck extension not limited Respiratory normal respiratory effort; no respiratory distress Auscultation: lungs clear to auscultation bilaterally Cardiovascular Rate/Rhythm: regular rate and regular rhythm Neurologic moves all extremities Psychiatric Orientation: alert and oriented x 3 Testing Laboratory Results 02/16/23 13:07 02/16/23 13:07
--- NOTE | 2023-02-17 06:20 | Communication Note ---
Date of Service: February 17, 2023 pt hypotensive after epidural bolus. i bolused her ~1L lactated ringers and gave several doses of phenylepherine. pt BP stabalized.
--- NOTE | 2023-02-17 07:06 | Obstetrical Progress Note ---
Date of Service February 17, 2023 Assessment & Plan (1) Gestational hypertension: Plan: She received 3 doses of misoprostol 25 mcg sublingually, oxytocin has not been started, however patient is madeline every 2 to 3 minutes with good cervical change. Anticipate spontaneous vaginal delivery (2) ASCUS with positive high risk HPV: Plan: Plan to follow-up (3) SVT (supraventricular tachycardia): Plan: Patient to be followed as appropriate, (4) Crohn's disease of ileum: Plan: Not currently on medication, will continue to follow Admission and Anticipated Discharge Date Admission Date: February 16, 2023 Subjective Patient comfortable with epidural at this time, no pressure. No other complaints Physical Exam Genitourinary: heart tracing: Baseline 150, moderate variability, no accelerations, variable deceleration x1 Tocometer: Contractions every 2 to 3 minutes Cervix: 9.5/100/0 Results & Data Vital Signs (Past 12 Hours) Vital Signs Temp Pulse Resp BP Pulse Ox 02/17/23 06:59 111 H 99 02/17/23 06:58 95 H 132/74 02/17/23 06:54 106 H 100 02/17/23 06:52 110 H 90 02/17/23 06:49 107 H 99 02/17/23 06:44 111 H 100 02/17/23 06:42 109 H 136/81 02/17/23 06:39 114 H 99 02/17/23 06:34 107 H 100 02/17/23 06:29 113 H 100 02/17/23 06:27 118 H 133/82 02/17/23 06:24 110 H 100 02/17/23 06:19 122 H 98 02/17/23 06:14 114 H 100 02/17/23 06:11 121 H 120/58 L 02/17/23 06:09 142 H 100 02/17/23 06:10 139 H 132/58 L 02/17/23 06:07 131 H 107/69 02/17/23 06:04 120 H 119/59 L 100 02/17/23 06:02 118 H 122/69 02/17/23 05:59 120 H 137/67 100 02/17/23 05:57 115 H 137/65 02/17/23 05:56 100 H 129/70 02/17/23 05:54 108 H 100 02/17/23 05:53 117 H 89/52 L 02/17/23 05:51 107 H 87/53 L 02/17/23 05:49 121 H 103/51 L 100 02/17/23 05:47 101 H 102/64 02/17/23 05:45 104 H 98/57 L 02/17/23 05:44 107 H 100 02/17/23 05:43 129 H 98/53 L 02/17/23 05:41 118 H 115/63 02/17/23 05:39 121 H 101/63 100 02/17/23 05:37 105 H 98/60 L 02/17/23 05:35 127 H 90/57 L 02/17/23 05:34 112 H 100 02/17/23 05:33 118 H 82/52 L 02/17/23 05:31 123 H 88/51 L 02/17/23 05:29 145 H 93/55 L 100 02/17/23 05:27 137 H 108/57 L 02/17/23 05:25 160 H 119/63 02/17/23 05:24 152 H 100 02/17/23 05:23 162 H 120/68 02/17/23 05:19 87 99 02/17/23 05:14 96 H 99 02/17/23 04:55 18 02/17/23 04:55 36.7 C 18 02/17/23 05:09 112 H 100 02/17/23 03:26 96 H 128/83 02/17/23 02:55 18 02/17/23 02:55 36.6 C 18 02/16/23 22:32 36.7 C 70 16 118/75
[2023-02-17] MEDS ORDERED: IBUPROFEN 600 MG TAB PO PRN (07:57)
[2023-02-17] MEDS ORDERED: HYDROCORTISONE ACETATE 25 MG SUPP PR PRN (07:57)
[2023-02-17] MEDS ORDERED: BENZOCAINE 20% AER SPR 82.5 GM CAN EXT PRN (07:57)
[2023-02-17] MEDS ORDERED: bisacodyL 10 MG SUPP PR PRN (07:57)
[2023-02-17] MEDS ORDERED: DIPHTHERIA/TETANUS/PERTUSSIS 0.5mL SYR/VIAL (Age 7+yrs) IM ONE (07:57)
--- NOTE | 2023-02-17 08:00 | Delivery Summary ---
Vaginal Delivery Summary Date of Service February 17, 2023 Vaginal Delivery Summary Delivery Note History synopsis: Patient is a 27-year-old -0-1-1 induction of labor for gestational hypertension, she received 3 doses of misoprostol sublingually over her induction, she spontaneously ruptured and was madeline too much to give another dose. She received an epidural for pain control was found to be 9.5 cm dilated. She was then straight cathed by nursing staff and was found to be complete +2. I was called for delivery Delivery Summary: Patient was placed in the dorsal lithotomy position. She was prepped and draped in the usual sterile fashion. Upon maternal pushing the head was delivered atraumatically followed by compound right hand, anterior shoulders, posterior shoulders then the remainder of the infants body. The infant was immediately placed on mother's abdomen, dried and stimulated. Delayed cord clamping for 60 seconds was performed. The infants mouth and nose were bulb suctioned by nursing staff. A female was delivered at 0738, weight pending with APGARS of 8 at 1 minute and 9 at 5 minutes. The infant was handed off to the awaiting nursing staff. Cord blood gases were not obtained. The placenta delivered intact with three vessel cord at. Placenta was sent to pathology. Thirty units of Pitocin were added to the IV fluid and allowed to run freely. Uterine massage was performed until uterus was deemed firm. Upon inspection of the perineum, vagina and cervix were intact. First degree laceration was noted which was repaired with 3-0 Vicryl in a [id number] fashion. Also noted small right labial laceration, that was hemostatic therefore repaired upon re-inspection the patient was hemostatic. Uterus again massaged and found to be firm. Needle and sponge counts were correct. Patient was stable and allowed to recover in L&D room. was stable and remained in room with mother in the labor and delivery unit. EBL 300 mL
--- NOTE | 2023-02-17 09:46 | Anesthesia Procedure Note ---
Date of Service February 17, 2023 Anesthesia Post Epidural Note Vital Signs Vital Signs: Temp Pulse Resp BP Pulse Ox 98.2 F 81 18 129/74 98 02/17/23 07:12 02/17/23 09:42 02/17/23 08:30 02/17/23 09:42 02/17/23 07:49 Notes Mental Status: alert / awake / arousable and participated in evaluation Nausea / Vomiting: adequately controlled Pain: adequately controlled Airway Patency, RR, SpO2: stable & adequate BP & HR: stable & adequate Hydration State: stable & adequate Neuraxial Anesthesia: was administered and sensory block is resolving Anesthetic Complications: no major complications apparent and Pt Satisfied with anesthetic care Epidural: Removed without complications and With tip intact
[2023-02-17] MEDS: FERROUS SULFATE 325 MG TAB PO SCH (09:57)
[2023-02-17] MEDS: DOCUSATE SODIUM 100 MG CAP PO SCH ×2 (09:57→21:09)
[2023-02-17] MEDS: PRENATAL VITAMIN 1 TAB PO SCH (09:57)
[2023-02-17] MEDS: ACETAMINOPHEN 325 MG TAB PO PRN ×2 (09:57→17:17)
[2023-02-17] MEDS ORDERED: Nursing to Pharmacy Communication SCH (10:45)
[2023-02-18 07:16] LABS: Hematocrit (blood only) 35.3 % (37.0-47.0); Hemoglobin 12.4 g/dl (12.0-16.0); Mean Corpuscular Hemoglobin 31.4 pg (25.0-34.0); Mean Corpuscular Hgb Conc 35.1 g/dL (32.0-36.0); Mean Corpuscular Volume 89.4 fL (80.0-100.0); Mean Platelet Volume 10.9 fL (9.4-12.4); Platelet Count 242 K/uL (130-400); RDW Coefficient of Variation 12.6 % (11.5-14.5); RDW Standard Deviation 41.3 fL (36.4-46.3); Red Blood Count 3.95 M/uL (4.20-5.40)
[2023-02-18] MEDS: ACETAMINOPHEN 325 MG TAB PO PRN (07:52)
[2023-02-18] MEDS: DOCUSATE SODIUM 100 MG CAP PO SCH (07:52)
[2023-02-18] MEDS: FERROUS SULFATE 325 MG TAB PO SCH (07:52)
[2023-02-18] MEDS: PRENATAL VITAMIN 1 TAB PO SCH (07:52)
--- NOTE | 2023-02-18 08:31 | Obstetrical Progress Note ---
Date of Service February 18, 2023 Assessment & Plan Admission and Anticipated Discharge Date Admission Date: February 16, 2023 Subjective Patient is seen and examined. She feels well, no complaints. Ambulating without dizziness Voiding without difficulty Tolerating regular diet with out N&V Bleeding is minimal No fever/ chills/ CP/ SOB/ N&V/ Leg pain Breast feeding without problems Vital Signs Temp Pulse Pulse Resp BP BP Pulse Ox 02/18/23 07:40 36.8 C 72 18 128/86 98 02/18/23 03:00 36.5 C 61 18 125/70 02/17/23 23:00 36.5 C 82 18 125/83 02/17/23 20:00 36.6 C 91 H 18 130/86 02/17/23 16:15 36.8 C 74 20 136/83 99 02/17/23 10:30 37.1 C 87 16 128/82 99 02/17/23 10:20 37.1 C 20 02/17/23 10:00 18 02/17/23 09:57 95 H 133/74 02/17/23 09:42 81 129/74 02/17/23 09:27 99 H 133/77 02/17/23 09:12 91 H 127/74 02/17/23 08:57 104 H 134/78 02/17/23 08:42 100 H 126/69 O2 Del Method 02/18/23 07:40 Room Air 02/18/23 03:00 Room Air 02/17/23 23:00 Room Air 02/17/23 20:00 Room Air 02/17/23 16:15 Room Air 02/17/23 10:30 Room Air 02/17/23 10:20 02/17/23 10:00 02/17/23 09:57 02/17/23 09:42 02/17/23 09:27 02/17/23 09:12 02/17/23 08:57 02/17/23 08:42 Lab Results 02/16/23 02/16/23 02/16/23 Range/Units 12:45 13:07 13:07 WBC 9.94 (4.8-10.8) K/ul RBC 3.92 L (4.20-5.40) M/uL Hgb 12.2 (12.0-16.0) g/dl Hct 34.6 L (37.0-47.0) % MCV 88.3 (80.0-100.0) fL MCH 31.1 (25.0-34.0) pg MCHC 35.3 (32.0-36.0) g/dL RDW Std Deviation 39.5 (36.4-46.3) fL RDW Coeff of Aleena 12.3 (11.5-14.5) % Plt Count 260 (130-400) K/uL MPV 10.9 (9.4-12.4) fL Sodium 136 (136-145) mmol/L Potassium 3.7 (3.5-5.1) mmol/L Chloride 107 (98-107) mmol/L Carbon Dioxide 20 L (21-32) mmol/L Anion Gap 9 (3-11) BUN 9 (6-23) mg/dl Creatinine 0.38 L (0.6-1.2) mg/dl Est Cr Clr Drug Dosing 259.9 ml/min Est GFR ( Amer) > 150.0 ml/min Est GFR (Non-Af Amer) 143.2 ml/min BUN/Creatinine Ratio 23.7 H (10-20) Glucose 125 H (70-99(Fasting)) mg/dl Calcium 8.6 (8.6-10.3) mg/dl Total Bilirubin 0.2 (0.2-1.0) mg/dl AST 17 (13-39) U/L ALT 11 (7-52) U/L Alkaline Phosphatase 157 H (34-104) U/L Total Protein 6.2 (6.0-8.3) gm/dl Albumin 3.4 (3.4-5.0) gm/dl Globulin 2.8 (2.5-4.0) gm/dl Albumin/Globulin Ratio 1.2 (0.9-2) RPR (Nonreactive) HIV (1&2) Ag & Ab Conf (NON-REACTIVE) SARS-CoV-2, RNA, NAAT NEGATIVE (NEGATIVE) 02/16/23 02/16/23 02/18/23 Range/Units 13:07 13:07 06:36 WBC 10.80 (4.8-10.8) K/ul RBC 3.95 L (4.20-5.40) M/uL Hgb 12.4 (12.0-16.0) g/dl Hct 35.3 L (37.0-47.0) % MCV 89.4 (80.0-100.0) fL MCH 31.4 (25.0-34.0) pg MCHC 35.1 (32.0-36.0) g/dL RDW Std Deviation 41.3 (36.4-46.3) fL RDW Coeff of Aleena 12.6 (11.5-14.5) % Plt Count 242 (130-400) K/uL MPV 10.9 (9.4-12.4) fL Sodium (136-145) mmol/L Potassium (3.5-5.1) mmol/L Chloride (98-107) mmol/L Carbon Dioxide (21-32) mmol/L Anion Gap (3-11) BUN (6-23) mg/dl Creatinine (0.6-1.2) mg/dl Est Cr Clr Drug Dosing ml/min Est GFR ( Amer) ml/min Est GFR (Non-Af Amer) ml/min BUN/Creatinine Ratio (10-20) Glucose (70-99(Fasting)) mg/dl Calcium (8.6-10.3) mg/dl Total Bilirubin (0.2-1.0) mg/dl AST (13-39) U/L ALT (7-52) U/L Alkaline Phosphatase (34-104) U/L Total Protein (6.0-8.3) gm/dl Albumin (3.4-5.0) gm/dl Globulin (2.5-4.0) gm/dl Albumin/Globulin Ratio (0.9-2) RPR Nonreactive (Nonreactive) HIV (1&2) Ag & Ab Conf NON-REACTIVE (NON-REACTIVE) SARS-CoV-2, RNA, NAAT (NEGATIVE) PE: General: Alert, orientedx3, NAD Abd: soft, NT, fundus firm, below Umbilicus Perineum intact, Lochia rubra minimal Ext; NT, no edema AP: 27 yo s/p , ppd# 1 VSS Afebrile doing well Continue routine care All questions were answered Desires d/c today D/C home , f/u in office Results & Data Vital Signs (Past 12 Hours) Vital Signs Temp Pulse Resp BP Pulse Ox O2 Del Method 02/18/23 07:40 36.8 C 72 18 128/86 98 Room Air 02/18/23 03:00 36.5 C 61 18 125/70 Room Air 02/17/23 23:00 36.5 C 82 18 125/83 Room Air
[2023-02-18] MEDS ORDERED: bisacodyL 5 MG TABEC PO SCH (20:00)
== END 2023-02-18 12:10 | disposition home or self-care (01) | DRG 806 ==
LOC: 4S1 12:43 → 4E2 02-17 10:18